=== PATIENT | male | born 1950 | race Caucasian/White ===

== ENCOUNTER 2024-05-11 14:19 | Outpatient (CLI) | payer MEDICARE, OTHER, SELFPAY ==
--- NOTE | ~2024-05-11 | MR_ITS ---
EXAMINATION: MR brain/brain stem wo/w con DATE: 05/11/2024 15:02 INDICATION: Ophthalmoplegia. TECHNIQUE: Magnetic resonance imaging (MRI) of the brain and brainstem was performed without and with 20 mL MultiHance intravenous contrast. COMPARISON: None. FINDINGS: There are scattered areas of nonspecific increased T2-weighted signal intensity in the cere bral white matter, which is within normal limits for the patient's age. There is no intracranial hemo rrhage, acute infarction, or abnormal intracranial mass lesion. The ventricles are normal in size. Th ere is mucosal thickening in the paranasal sinuses. There is anteroposterior elongation of the ocular globes. There are likely changes of ocular lens replacement surgeries. The mastoid air cells are nor mal. IMPRESSION: 1. Normal aging brain. Reviewed, dictated and finalized at location A. E RECLAIMER IMPRESSION: 1. Normal aging brain.
--- OUTSIDE RECORDS SUMMARY | 2024-05-11 14:52 | XMS_ITS | Continuity of Care Document ---
Author Organization [facility] Address [address] [facility] [place] [address] Phone Care Team Providers Care Inspector [employer] Name Role Phone Sanya Foote MD Unavailable Unavailable Allergies, Adverse Reactions, Alerts Substance Reaction Status Criticality No Known Allergies Active No Inform ation Medications Medication Instructions Dosage Effective Dates (start - stop) Status Comments prednisone 20 mg tablet take 3 Tablet by oral route every day 60 MG - Active Crestor 10 mg tablet take 1 tablet by oral route every day 10 MG - Active irbesartan 150 mg-hydrochlorothiazi de 12.5 mg tablet take 1 tablet by oral route every day 1.00 tablet - Active finasteride 5 mg tablet take 1 tablet by oral route every day 5 MG - Active Procedures Procedure Date OFFICE/OUTPATIENT VISIT, EST PPPS, subseq visit OFFICE/OUTPATIENT VISIT, EST OFFICE/OUTPATIENT VISIT, EST OFFICE/OUTPATIENT VISIT, EST PPPS, initial visit OFFICE/OUTPATIENT VISIT, EST OFFICE/OUTPATIENT VISIT, EST OFFICE/OUTPATIENT VISIT, EST OFFICE/OUTPATIENT VISIT, NEW Advance Directives Directive Yes / No Effective Date File Name No Information Encounters Encounter Description Practice Location Reason(s) For Visit Diagnoses Date Provider Providers Copied on Encounter OFFICE/OUTPA TIENT VISIT, EST [facility], [address], [place], [id number], [place] tel:[phone] [facility] cough1 (chief complaint) migraine1 (chief complaint) HTN (chief complaint) Ophthalmoplegic migraine, not intractableEssentia l (primary) hypertensionChronic cough 5 Qamar Segundo. [address], [address], [place], [place], [id number] , [place]. [phone] OFFICE/OUTPA TIENT VISIT, [facility] [place], [address], [place], [place], [id number], [place] tel:[phone] [facility] Medicine physical (chief complaint) Encounter for general adult medical exam w abnormal findingsMixed hyperlipidemiaEssen tial (primary) hypertensionBPH w/o lower urinary tract symptom 4 Qamar Segundo. [address], [address], [place], [place], [id number] , [place]. tel:[phone] OFFICE/OUTPA TIENT VISIT, [facility], [place], [address], [place], [place], [id number], [place] tel:[phone] [facility] cough1 (chief complaint) elbow pain1 (chief complaint) Lateral epicondylitis, left elbowAcute bronchitis 3 Qamar Segundo. [address], [address], [place], [place], [id number] , [place]. [phone] OFFICE/OUTPA TIENT VISIT, [facility], [place], [address], [address], [place] tel:[phone] [facility] Medicine HLKP (chief complaint) skin (chief complaint) HTN (chief complaint) BPH1 (chief complaint) weight gain1 (chief complaint) Abnormal weight gainBPH w/o lower urinary tract symptomEssential (primary) hypertensionMixed hyperlipidemiaActin ic keratosis 2 Qamar Segundo. [address], [address], [place], [place], [address] , [place]. [phone] OFFICE/OUTPA TIENT VISIT, [facility] [place], [address], [place], [place], [address], [place] tel:[phone] [facility] Medicine physical (chief complaint) Essential (primary) hypertensionMixed hyperlipidemiaBPH w/o lower urinary tract symptomEncounter for general adult medical exam w abnormal findings 2 Qamar Fisher [address], [address] , [place]. tel:[phone] OFFICE/OUTPA TIENT VISIT, [facility] [place], [address], [place], [address], tel:[phone] [facility] HTN (chief complaint) HTN (chief complaint) HLP (chief complaint) UTI1 (chief complaint) HyperlipidemiaUrina ry tract infectionElevated prostate specific antigen [PSA]Essential (primary) hypertension 1 Qamar Fisher [address], [address] , [place]. tel:[phone] OFFICE/OUTPA TIENT VISIT, [facility], [place], [address] [place], [address], tel:[phone] [facility] PSA (chief complaint) HLP (chief complaint) UTI1 (chief complaint) HTN (chief complaint) Essential (primary) hypertensionHyperli pidemiaElevated prostate specific antigen [PSA]Urinary tract infectionVitamin D deficiency, unspecified 1 Qamar Fisher [address] [facility] [place], [address] , [place]. tel: [phone] OFFICE/OUTPA TIENT VISIT, [facility], [address], [address], [place] tel:[phone] [facility] HTN (chief complaint) edema1 (chief complaint) cataract1 (chief complaint) Essential (primary) hypertensionEdemaCa taract with neovascularization, right eye 1 Qamar Fisher [address] [facility] [facility] [place], [address] , [place]. tel:[phone] Family History Family Member Type Diagnosis Age At Onset Mother Problem of hip fx 72 (Cause Of ) Brother Problem Alive and well Father Problem of CAD (Cause Of ) 70 Payers Payer name Insurance type Covered republican ID Meli almendarez(s) No Information Social History Type Description Quantity Date Captured Comments Alcohol Use Details No Caffeine Use Details Unknown Tobacco Use Status Current non-smoker Smoking Status Never smoker Sex Male Vital Signs Date / Time: Height Weight BMI Pulse Rate Blood Pressure Temperature Respiratory Rate Body Surface Area Head Circumference BMI percentile Pulse Ox Inhaled Ox 12:57 PM 71.00 in 239.60 lbs 33.4 2 kg/m eter (2) 75 /min 130/80 mm[Hg] 98.0 F 16 /min Chief Complaint And Reason For Visit From encounter dated '04/21/2024 12:46'. cough1 (chief complaint). Description: Pt c/o persistent dry cough since 3 months ago. Pt states that he has coughing spells which is about 3 times per week Pt denies any phlegm pt denies any sore throat Pt denies any sinus drainage Pt denies any ear pain or sob or fever or chest pain migraine1 (chief complaint). Description: Pt has chronic and intermittent migraine headache for many years Pt notices photophobia with nausea along with migraine headache. Pt states that bright lightusually triggers headache. Pt usually has blurred vision left eye along with headache. Pt states that she has not had any headache for several years but he continues to have intermittent left eye blurred vision which usually last several hours after exposure to bright light Pt does have left cataract and macular hole and he does see corporate wellness coordinator .Pt was told by corporate wellness coordinator that his symptoms are not due to eye, instead something in the brain HTN (chief complaint). Description: Pt has HTN ,Pt takes irbesartan/hctz and his bp is ok. Plan Of Treatment Date Type Action Status Referral Ordered: MRI BRAIN W/O & W/DYE ordered Referral Ordered: Otolaryngology (related to Actinic keratosis) ordered Referral Ordered: Referrals: Otolaryngology. Evaluate and treat ordered Referral Ordered: Urology (related to Elevated prostate specific antigen [PSA]) ordered Referral Ordered: Referrals: Urology. Evaluate and treat ordered Appointment David Shaffer BOOKED Appointment David Shaffer BOOKED History Of Present Illness Encounter Date Complaint History Of Prese nt Illness cough1 Pt c/o persisten t dry cough since 3 months ago. Pt states that he has coughing spells which is about 3 times per week Pt denies any phlegm pt denies any sore throat Pt denies any sinus drainage Pt denies any ear pain or sob or fever or chest pain migraine1 Pt has chronic a nd intermittent migraine headache for many years Pt notices photophobia with nausea along with migraine headache. Pt states that bright light usually triggers headache. Pt usually has blurred vision left eye along with headache. Pt states that she has not had any headache for several years but he continues to have intermittent left eye blurred vision which usually last several hours after exposure to bright light Pt does have left cataract and macular hole and he does see corporate wellness coordinator .Pt was told by corporate wellness coordinator that his symptoms are not due to eye, instead something in the brain HTN Pt has HTN ,Pt t akes irbesartan/hctz and his bp is ok. physical Pt needs annual physical Pt has HLP. Pt takes crestor. Pt denies any myalgia. Pt has HTn. Pt takes irbesartan/hctz and his bp is stable. He has BPH and he sees urology. He denies any urinary symptoms .Pt is on finasteride. Pt overall feels well. Pt denies any complaints. elbow pain1 Pt c/o dull left elbow pain x 3 weeks ,pt denies any injury or swelling Pt denies radiation of pain down to left forearm or any numbness or tingling of left forearm Pt denies any redness or warmth. Pt only notices pain when he lift his left elbow to certain degree. cough1 Pt c/o persisten t dry cough x 3 weeks. Pt denies any phlegm Pt denies any sob Pt denies any fever, sore throat. His tested positive for COVID 2.5 weeks ago. Pt denies any chest pain. Pt denies any headache or chest pain or GI symports BPH1 Pt has BPH Pt se es urology and he is on proscar .Pt denies any slow stream, dribbling or any urinary difficulty or urgency HTN Pt has HTN, Pt t akes irbesartan and his bp is stable weight gain1 Pt has been gain ing weight .Pt is not very physically active. pt states that hs to gain weight during winter time skin Pt has scaly and rough skin left ear lobe for one year. Pt nguyen any bleeding Pt notices recurrent rough and scaly skin pt denies any itching or pain. Pt denies any scabbing HLKP Pt has HLP. Pt t akes crestor and his lipid profile is ok His TG is borderline high Pt denies any myalgia physical Pt needs annual physical Pt has HLP. Pt takes crestor. Pt denies any myalgia. Pt has HTn. Pt takes irbesartan/hctz and his bp is stable. He has BPH and he sees urology. He denies any urinary symptoms .Pt is not on any BPH medication. Pt overall feels well. Pt denies any complaints. UTI Pt had asymptoma tic UTI. Pt denies any urinary symptoms and his ua is clear now HLP Pt has HLP Pt ta [place] crestor .Pt denies any myalgia. His lipid profile is better HTN Pt has HTN. Pt t akes irbesartan and his bp is ok. Pt denies any urinary symptoms HTN Pt has high PSA Pt denies any urinary symptoms Pt sees urology and he just got prostate MRi done and he is waiting for results HTN Pt has HTN. Pt t akes irbesartan/hctz and bp ok Pt denies any chest pain or headache Pt denies any cough UTI1 Pt has UTI witho ut any symptoms Pt has urinary frequency but for over one year ,Pt denies any dysuria, urgency. HLP Pt has HLP Pt is not on any diet PSA Pt has high PSA. Pt notices mild urinary frequency for one year Pt denies any dysuria, urgency or difficulty with urination HTN Pt has history o f HTN but he was never treated .Pt denies any chest pain or headache. His bp at home is on average around 155-160/95-100. He states that he has white coat syndrome. edema Pt has some LE e perfecto chronically Pt denies any claudication PT denies any leg pain or calf pain Pt denies any recent travel or bedrest.. he denies any cold extremity. He states that swelling seems to be worse at night. Pt denies any chest pain or sob cataract Pt needs right c ataract surgery soon and he needs clearance. He will undergo monitored anesthesia with mild sedation only. Instructions Date Instruction Additional Infor mation No Information Assessments Type Assessment Date assessment Ophthalmoplegic migraine, not in tractable assessment Essential (primary) hypertension assessment Chronic cough Mental Status Date Cognitive Assessment Orientation - [place] ed to time, place, person, situation.
--- OUTSIDE RECORDS SUMMARY | 2024-05-11 14:52 | XMS_ITS | Continuity of Care Document ---
Author Name [facility] Organization 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 Unavailable Unavailable Problems Combined list of problems from Department of Defense and Veterans Affairs facilities. It does not include entries that were removed or entered in error. Problem Status Onset Date Problem Type Date of Resolution Comments Source macular hole Active Condition DoD cataract left eye Active Condition DoD large intestine neoplasm, benign - tubular adenoma Inactive Condition DoD Aftercare Active Condition DoD large intestine neoplasm, benign polyps Inactive Condition DoD visit for: screening exam malignant neoplasm prostate Inactive Condition DoD Need For Vaccination Against Influenza Inactive Condition DoD Need For Vaccination Against DTP Inactive Condition DoD visit for: screening malignant neoplasm colon Inactive Condition DoD visit for: issue repeat prescription Inactive Condition DoD visit for: administrative purpose Inactive Condition DoD hypertension systemic Active Condition DoD Removal Of Sutures Inactive Condition Do D ganglion left foot Active Condition DoD dermatophytosis onychomycosis toenails right Active Condition DoD unspecified diagnosis Active Condition Tylenol for pain. Keep moist. RTC for problems. DoD non-neoplastic nevus Active Condition Appears stable, but because of rapid growth recently, will remove for proper dx. DoD Medications Combined list of outpatient medications from Department of Defense and Veterans Affairs facilities.Medications provided include 1) outpatient medications from the last 15 months, and 2) patient-reported medications. Medication Details Route Status Patient Instructions Prescription Expires Prescription Number Last Dispense Date Ordering Provider Order Date Order Qty Source FINASTERIDE (FINASTERID E), 5 MG, TABLET, ORAL, EXELAN PHARMACE, 90 ea. BOTTLE Active [id number] 4 2023 90 Pharmac y Data Transac tion Service Facilit y IRBESARTAN- HYDROCHLORO THIAZIDE (IRBESARTAN /HYDROCHLOR OTHIAZIDE), 150-12.5MG, TABLET, ORAL, [facility], 90 ea. BOTTLE Active [id number] 4 2023 90 Pharmac y Data Transac tion Service Facilit y IRBESARTAN- HYDROCHLORO THIAZIDE (IRBESARTAN /HYDROCHLOR OTHIAZIDE), 150-12.5MG, TABLET, ORAL, [facility], 90 ea. BOTTLE Active [id number] 4 2023 90 Pharmac y Data Transac tion Service Facilit y LATANOPROST (LATANOPROS T), 0.005%, DROPS, OPHTHALMIC, [employer] 2.5 ml DROP BTL Active [id number] 07/22/19 2 4 2023 5 Pharmac y Data Transac tion Service Facilit y LATANOPROST (LATANOPROS T), 0.005%, DROPS, OPHTHALMIC, [employer] 2.5 ml DROP BTL Active [id number] 09/22/19 2 4 2023 5 Pharmac y Data Transac tion Service Facilit y Allergies, Adverse Reactions, Alerts Combined list of allergies from Department of Defense and Veterans Affairs facilities. It does not include entries that were removed or entered in error. Substance Category Reaction Severity Reaction type Status Date Reported Comments Source [facility] Drug allergy (disorder) active 12/12/2005 [facility] David RIVERA [place] Immunizations Combined list of available immunizations from the Department of Defense and Veterans Affairs facilities. Immunization Series Date Given Administered By Site Reaction Lot Number CVX Code Drug Sustainability Officer Status Comments Source COVID Vaccine Pfizer 2020 208 PFIZER complet ed COVID Vaccine Pfizer 01/22/21 Given Ambulat ory Pharmac y COVID-19, mRNA, LNP-S, PF, 30 mcg/0.3 mL dose 2020 [facility] [place] (PFR) Not Given COVID-19, mRNA, LNP-S, PF, 30 mcg/0.3 mL dose DoD zoster vaccine, inactivated 2020 [facility] 187 GlaxoSmithKli ne complet ed zoster vaccine, inactivat ed 01/10/21 Given Ambulat ory Pharmac y zoster vaccine, inactivated 2020 zzLef t Arm 24H 187 GlaxoSmithKli ne complet ed zoster vaccine, inactivat ed 01/10/21 Given Ambulat ory Pharmac y zoster vaccine recombinant 1 2020 Unknown, Provider 24H 187 [facility] zoster vaccine recombina nt DoD zoster vaccine, inactivated 2020 [id number] 187 GlaxoSmithKli ne complet ed zoster vaccine, inactivat ed 09/21/20 Given Ambulat ory Pharmac y pneumococcal polysaccharid e, 23 valent 2020 [id number] Merck & Company Inc complet ed pneumococ sabrina polysacch aride, 23 valent 09/21/20 Given Ambulat ory Pharmac y zoster vaccine, inactivated 2020 zzLef t Arm [id number] 187 [facility] complet ed zoster vaccine, inactivat ed 09/21/20 Given Ambulat ory Pharmac y pneumococcal polysaccharid e, 23 valent 2020 zzLef t Arm [id number] 33 [employer]ck & Company Inc complet ed pneumococ sabrina polysacch aride, 23 valent 09/21/20 Given Ambulat ory Pharmac y pneumococcal polysaccharid e vaccine, 23 valent 1 2020 Unknown, Provider [id number] Merck (MSD) complet ed pneumococ sabrina polysacch aride vaccine, 23 valent DoD zoster vaccine recombinant 1 2020 Unknown, Provider [id number] 187 [facility] ([facility]B) complet ed zoster vaccine recombina nt DoD zoster vaccine live 2014 [id number] [employer] Inc complet ed zoster vaccine live 12/15/14 Given Ambulat ory Pharmac y zoster vaccine live 2014 zzLef t Arm [id number] 121 [employer] Inc complet ed zoster vaccine live 12/15/14 Given Ambulat ory Pharmac y zoster vaccine, live 1 2014 Unknown, Provider [id number] 121 Merck (MSD) complet ed zoster vaccine, live DoD influenza, seasonal, injectable-pf 2011 [id number] 140 sanofi pasteur complet ed influenza , seasonal, injectabl e-pf 03/11/12 Given Ambulat ory Pharmac y tetanus, diphtheria, acellular pertu is 2011 [id number] 115 [facility] ed tetanus, diphtheri a, acellular pertussis 03/11/12 Given Ambulat ory Pharmac y influenza, seasonal, injectable-pf 2011 zzLef t Arm [id number] 140 sanofi pasteur complet ed influenza , seasonal, injectabl e-pf 03/11/12 Given Ambulat ory Pharmac y tetanus, diphtheria, acellular pertu is 2011 zzRig Arm [id number] 7BC 115 [facility] tetanus, diphtheri a, acellular pertussis 03/11/12 Given Ambulat ory Pharmac y tetanus toxoid, reduced diphtheria toxoid, and acellular pertu is vaccine, adsorbed 1 2011 Unknown, Provider [id number] 115 [facility] ([facility]B) complet ed tetanus toxoid, reduced diphtheri a toxoid, and acellular pertussis vaccine, adsorbed DoD Influenza, seasonal, injectable, preservative free 1 2011 Unknown, Provider [id number] 140 Sanofi Pasteur (PMC) complet ed Influenza , seasonal, injectabl e, preservat shantal free DoD tetanus-dipht h toxoids (Td) adult/adol 2003 [id number] 09 sanofi pasteur complet ed tetanus-d iphth toxoids (Td) adult/ado l 01/24/04 Given Ambulat ory Pharmac y tetanus-dipht h toxoids (Td) adult/adol [facility] [id number] 09 sanofi pasteur complet ed tetanus-d iphth toxoids (Td) adult/ado l 01/24/04 Given Ambulat ory Pharmac y tetanus and diphtheria toxoids, adsorbed, preservative free, for adult use (2 Lf of tetanus toxoid and 2 Lf of diphtheria toxoid) 1 2003 Unknown, Provider [id number] 09 Sanofi Pasteur (PMC) complet ed tetanus and diphtheri a toxoids, adsorbed, preservat shantal free, for adult use (2 Lf of tetanus toxoid and 2 Lf of diphtheri a toxoid) DoD tuberculin purified protein derivative 2001 [id number] 96 sanofi pasteur complet ed tuberculi n purified protein derivativ e 10/12/01 Given Ambulat ory Pharmac y hepatitis A adult vaccine 1999 [id number] 52 Merck & Company Inc complet ed hepatitis A adult vaccine 11/12/99 Given Ambulat ory Pharmac y hepatitis A adult vaccine 1999 zMargi t Arm [id number] 52 [employer]ck & Company Inc complet ed hepatitis A adult vaccine 11/12/99 Given Ambulat ory Pharmac y hepatitis A vaccine, adult dosage 2 07/31/ 2000 Unknown, Provider [id number] 52 Merck (MSD) complet ed hepatitis A vaccine, adult dosage DoD tuberculin purified protein derivative [id number] 96 [place] [employer]al[employer]to complet ed tuberculi n purified protein derivativ e 02/15/98 Given Ambulat ory Pharmac y tuberculin purified protein derivative [id number] 96 [place] Adalberto complet ed Patient Tolerance : Negative Ambulat ory Pharmac y tuberculin skin test; purified protein derivative solution, intradermal 1 1997 Unknown, Provider [id number] 96 [place] (PD) complet ed tuberculi n skin test; purified protein derivativ e solution, intraderm al DoD Vital Signs Combined list of inpatient and outpatient Vital Signs from Department of Defense and Veterans Affairs, ranging from 12 months to all on record, depending upon the facility. Vital Sign Value Date Comments Source No data available for this section Ambulatory Pharmacy Encounters Combined list of: 1) Encounters from Department of Veterans Affairs facilities going back up to thelast 18 months. 2) Encounters from the Department of Defense facilities going back up to 280 months. Location Location Details Encounter Type Encounter Number Reason For Visit Attending Provider ADM Date DC Date Status Disposition Source [address] [place] [address] David RIVERA [facility]Sco tt [facility] Fam Res Tm Green) OUTPATIENT [id number] lump on the shoulde r ARVIND SEYMOUR 11/26 Released w/o Limitations [address] [place] [address] David Jimy [facility])(S cott [facility] Fam Res Tm Green) [address] [place] [address] David Jimy [facility])(Fam helen Practice Procedure s) OUTPATIENT [id number] NON-MARLON PLASTIC NEVUS MARINA OSHEA 01/07 Released w/o Limitations [address] [place] [address] David RIVERA [facility])(F amily Practic e Procedu res) [address] [place] [address] David RIVERA [facility])(Sco tt [facility] FAMRES Tm Blue) OUTPATIENT [id number] poss fungus on toes - [phone] JERMAINE CASTILLO 01/24 Released w/o Limitations [address] [place] [address] David RIVERA [facility])(S cott [facility] FAMRES Tm Blue) [address] [place] [address] David Jimy [facility])(Sco tt [facility] FAMRES Tm Blue) OUTPATIENT [id number] growth on lt foot... [id number] WILLA ARROYO 02/01 Released w/o Limitations [facility] David SCHAEFERB [place]S cott [facility] FAMRES Tm Blue) Medical [facility] David OLIVEB ([facility]Sco tt [facility] Fam Res Tm Green) OUTPATIENT [id number] MINOR PROCEDU RES-KELSEA GLION LEFT FOOT LYUDMILA HUNG 02/28 Released w/o Limitations [facility] David OLIVEB [place]S cott [facility] Fam Res Tm Green) [address] [place] [address] David OLIVEB [place]Sco tt [facility] Fam Res Tm Green) OUTPATIENT [id number] SUTURE REMOVAL SONJA WARE 03/06 Released w/o Limitations [facility] David RIVERA ([facility]S cott [facility] Fam Res Tm Green) [address] [place] [address] David OLIVEB ([facility]Sco tt [facility] FAMRES Tm Blue) OUTPATIENT [id number] Cyst on left foot middle toe [phone] TIFFANY CAMARA 09/26 Released w/o Limitations [address] [place] [address] David SCHAEFERB ([facility]S cott [facility] FAMRES Tm Blue) [address] [place] [address] David OLIVEB ([facility]Sco tt [facility] FAMRES Tm Blue) TELE CONSULT [id number] Needs fup appt with Dr Armas - [phone] CAD [facility] PANKAJ ARMAS 10/17[facility] David SCHAEFERB ([facility]S cott [facility] FAMRES Tm Blue) [address] [place] [address] David SCHAEFERB ([facility]Sco tt [facility] FAMRES Tm Blue) OUTPATIENT [id number] f/u ROGER PALUMBO 11/13 Released w/o Limitations [facility] David SCHAEFERB ([facility]S cott [facility] FAMRES Tm Blue) [address] [place] [address] David SCHAEFERB ([facility]Sco tt [facility] FAMRES Tm Blue) OUTPATIENT [id number] f/u for medicat ions [phone] PANKAJ ARMAS 01/01 Released w/o Limitations [address] [place] [address] [employer] ([facility]S cott [facility] FAMRES Tm Blue) [address] [place] [address] [employer] ([facility]Sco tt [facility] FAMRES Tm Blue) OUTPATIENT [id number] f/u high blood pressur e [id number] VALENTE ARANA 06/30 Released w/o Limitations [address] [place] [address] Group David RIVERA ([facility]S cott [facility] FAMRES Tm Blue) [address] [place] [address] David RIVERA ([facility]Sco tt [facility] FAMRES Tm Blue) OUTPATIENT [id number] blood pressur e [phone] PANKAJ ARMAS 03/11 Released w/o Limitations [address] [place] [address] David RIVERA [facility])(S cott [facility] FAMRES Tm Blue) [address] [place] [address] David SCHAEFERB [facility])(Sco tt [facility] Fam Res Tm Green) OUTPATIENT [id number] 2nd floor David RIVERA/VALENTE Starr 05/18 Released w/o Limitations [address] [place] [address] David RIVERA [facility])(S cott [facility] Fam Res Tm Green) [address] [place] [address] David RIVERA [facility])(Sco tt [facility] FAMRES Tm Blue) TELE CONSULT [id number] Notes Entered by: ZABRINA BRISCOE 19 May 2012 1511 ------- ------- ------- ------- -- Call back C-scope 2012- KEKE Doty 05/19 Released to [facility] [address] [place] [address] David RIVERA [facility]S cott [facility] FAMRES Tm Blue) [address] [place] [address] David RIVERA [facility]Sco tt [facility] Fam Res Tm Green) TELE CONSULT [id number] Notes Entered by: VALENTE PAYNE 27 May 2012 1157 ------- ------- ------- ------- -- Biopsy Results VALENTE PAYNE 05/[address] [place] [address] Group David RIVERA [facility])(S cott [facility] Fam Res Tm Green) [address] [place] [address] David RIVERA [facility]Sco tt [facility] FAMRES Tm Blue) OUTPATIENT [id number] fu whole in left eye [phone] ROSEMARIE UNDERWOOD 02/16 Released w/o Limitations [address] [place] [address] David RIVERA [facility])(S cott [facility] FAMRES Tm Blue) [address] [place] [address] David RIVERA [facility]Sco tt [facility] FAMRES Tm Blue) TELE CONSULT [id number] Notes Entered by: BEA DONALDSON 15 Mar 2014 1305 ------- ------- ------- ------- -- Curt kimble Renewal request ed by KIRT ALVAREZ 03/15 Referred for Appointment [address] [place] [address] David [facility])(S cott [facility] FAMRES Tm Blue) [address] [place] [address] David [facility])(Sco tt [facility] FAMRES Tm Blue) TELE CONSULT [id number] Notes Entered by: TY FRAUSTO 18 Aug 2014 1427 ------- ------- ------- ------- -- Kim bartholomew /johanna /[phone] 52 MARGOT MEZA 08/[address] [place] [address] David [facility]S [facility] FAMRES Tm Blue) [address] [place] [address] David [facility])(Sco tt [facility] FAMRES Tm Blue) TELE CONSULT [id number] Notes Entered by: STEVIE SANTANA 23 Sep 2014 1442 ------- ------- ------- ------- -- Network results Ophthal [facility] 5 DEX PHILIPPE 09/[address] [place] [address] [facility] FAMRES Tm Blue) [address] [place] [address] David [facility])(Sco tt [facility] Fam Res Tm Green) TELE CONSULT [id number] Notes Entered by: STEVIE SANTANA 05 Oct 2014 1119 ------- ------- ------- ------- -- Network results Ophthal mology 4 & 5 DEX PHILIPPE 10/[address] [place] [address] David OLIVEB [facility])(S cott [facility] Fam Res Tm Green) [address] [place] [address] David B [facility])(Sco tt [facility] Fam Res Tm Green) TELE CONSULT [id number] Notes Entered by: STEVIE SANTANA 24 Jan 2015 0915 ------- ------- ------- ------- -- Network results [facility] mology 5 DEX PHILIPPE 01/[address] [place] [address] David SCHAEFERB [place]S cott OF Fam Res Tm Green) [address] [place] [address] David B ([facility]Sco tt OF FAMRES Tm Blue) TELE CONSULT [id number] Notes Entered by: Rob JIMÉNEZ 24 Jan 2015 1445 ------- ------- ------- ------- -- SX - Joaquinu lar elzbieat/reema gomez/ Johanna / MARGOT MEZA 01/[address] [place] [address] [employer] ([facility]S cott OF FAMRES Tm Blue) [address] [place] [address] David B ([facility]Sco tt OF FAMRES Tm Blue) OUTPATIENT [id number] Follow up er visit [id number] KRISTINE DEL TORO N 01/25 Released w/o Limitations [address] [place] [address] David B ([facility]S cott OF FAMRES Tm Blue) [address] [place], [place] [address]B ([facility]Sco tt OF FAMRES Tm Blue) OUTPATIENT [id number] f/u in 10 days KRISTINE DEL TORO N 02/02 Released w/o Limitations [address] [place] [address] [employer] ([facility]S cott OF FAMRES Tm Blue) [address] [place] [address] [employer] ([facility]Sco tt OF Fam Res Tm Green) TELE CONSULT [id number] Notes Entered by: STEVIE SANTANA 28 Mar 2015 1003 ------- ------- ------- ------- -- Network Results - [facility] mology 5 DEX PHILIPPE 03/[address] [place] [address] [employer] ([facility]S cott OF Fam Res Tm Green) [address] [place] [address] [employer] ([facility]Sco tt OF FAMRES Tm Blue) TELE CONSULT [id number] Notes Entered by: DONNY OROZCO 08 May 2016 1131 ------- ------- ------- ------- -- Network Results OPHTHAL MOLOGY 04/25/16 CHASITYDEX DIAZ Rob 05/[address] [place] [address])(S [facility] Blue) [address] [place] [address])(Sco tt [facility]) OUTPATIENT [id number] 9 cough x 1 month 61.693 .[phone] AIMEE REED 07/14 Released w/o Limitations [address] [place] [address])(S [facility]) [address] [place] [address])(Sco tt [facility]) TELE CONSULT [id number] Notes Entered by: DAVID HUSAIN 25 Dec 2018 0937 ------- ------- ------- ------- -- Network results Gastroe nterolo gy 019 EER AIMEE REED 12/25 Released to [facility] [address] [place] [address])(S [facility] Blue) [address] [place] [address])(Sco tt [facility]) OUTPATIENT [id number] 3 6-month f/u [id number] AIMEE REED 02/11 Released w/o Limitations [address] [place] [address])([facility]) Procedures Combined list of: 1) Procedures from Department of Veterans Affairs facilities going back up to thelast 18 months, not all VA non-surgical procedures are included; 2) All procedures from the Department of Defense facilities. Procedure Procedure Type Code Date Perfomer Comments Sourc e No data available for this section Ambulato ry Pharmacy CLOSED REDUCTION OF FRACTURE OF FEMUR WITH INTERNAL FIXATION 07/30/18 95 [facility] TELE ASSESS & MGT SRV PROV QUAL NONPHYS HLTH CARE PRO TO EST PAT,PARENT,GUARD NOT ORIG REL ASSESS & MGT SRV PROV W/IN PREV 7 DAYS NOR LEAD ASSESS & MGT SRV/PX W/IN NXT 24 HR/SOON APT;5-10 MIN MED DIS 01/25/20 15 DoD TELE ASSESS & MGT SRV PROV QUAL NONPHYS HLTH CARE PRO TO EST PAT,PARENT,GUARD NOT ORIG REL ASSESS & MGT SRV PROV W/IN PREV 7 DAYS NOR LEAD ASSESS & MGT SRV/PX W/IN NXT 24 HR/SOON APT;5-10 MIN MED DIS 08/19/19 15 DoD TELE ASSESS & MGT SRV PROV QUAL NONPHYS HLTH CARE PRO TO EST PAT,PARENT,GUARD NOT ORIG REL ASSESS & MGT SRV PROV W/IN PREV 7 DAYS NOR LEAD ASSESS & MGT SRV/PX W/IN NXT 24 HR/SOON APT;5-10 MIN MED DIS 03/15/20 14 DoD INFLUENZA VIRUS VACCINE, TRIVALENT (IIV3), SPLIT VIRUS, PRESERVATIVE FREE, 0.5 ML DOSAGE, FOR INTRAMUSCULAR USE 03/11/20 12 DoD TELE ASSESS & MGT SRV PROV QUAL NONPHYS HLTH CARE PRO TO EST PAT,PARENT,GUARD NOT ORIG REL ASSESS & MGT SRV PROV W/IN PREV 7 DAYS NOR LEAD ASSESS & MGT SRV/PX W/IN NXT 24 HR/SOON APT;5-10 MIN MED DIS 10/18/19 11 DoD EXCISION, BENIGN LESION INCLUDING MARGINS, EXCEPT SKIN TAG (UNLESS LISTED ELSEWHERE), SCALP, NECK, HANDS, FEET, GENITALIA; EXCISED DIAMETER 0.5 CM OR LESS 02/29/20 09 DoD SHAVING OF EPIDERMAL OR DERMAL LESION, SINGLE LESION, TRUNK, ARMS OR LEGS; LESION DIAMETER 1.1 TO 2.0 CM 01/08/20 06 DoD FITTING OF SPECTACLES, EXCEPT FOR APHAKIA; BIFOCAL 07/27/19 03 DoD SIGMOIDOSCOPY, FLEXIBLE; DIAGNOSTIC, INCLUDING COLLECTION OF SPECIMEN(S) BY BRUSHING OR WASHING, WHEN PERFORMED (SEPARATE PROCEDURE) 01/23/20 02 DoD SIGMOIDOSCOPY, FLEXIBLE; DIAGNOSTIC, INCLUDING COLLECTION OF SPECIMEN(S) BY BRUSHING OR WASHING, WHEN PERFORMED (SEPARATE PROCEDURE) 01/06/20 02 DoD Non-Physician Phone Call To Patient/Provider Brief (5-10min) Non-Physician Phone Call To Patient/Provider Brief (5-10min) [id number] 01/25/20 15 MARGOT MEZA DoD Non-Physician Phone Call To Patient/Provider Brief (5-10min) Non-Physician Phone Call To Patient/Provider Brief (5-10min) [id number] 08/19/19 15 MARGOT MEZA [facility] Non-Physician Phone Call To Patient/Provider Brief (5-10min) Non-Physician Phone Call To Patient/Provider Brief (5-10min) [id number] 03/15/20 14 KIRT DONALDSON [facility] Immunization Administration By Injection, One Vaccine Immunization Administration By Injection, One Vaccine [id number] 03/11/20 12 [facility] Influenza Split Virus Vaccine 0.5mL Dosage Intramuscular Preservative Free 03/11/20 12 [facility] Immunization Administration By Injection, Each Additional Vaccine 03/11/20 12 [facility] Tdap Vaccine Tdap Vaccine 36877 03/11/20 12 [facility] Non-Physician Phone Call To Patient/Provider Brief (5-10min) Non-Physician Phone Call To Patient/Provider Brief (5-10min) [id number] 10/19/19 11 JEANIE MERINO [facility] Excision Of Lesion Feet Benign .6 to 1cm Excision Of Lesion Feet Benign .6 to 1cm [id number] 02/29/20 09 LYUDMILA HUNG [facility] Shaving Of Lesion Trunk 1.1 to 2cm Shaving Of Lesion Trunk 1.1 to 2cm [id number] 01/08/20 06 MARINA OSHEA [facility] Social History Combined list of available smoking, tobacco, and other social history from [facility] facilities. Social History Type Response Date Comment Sour e This section is an empty social history section. [employer] Assessment and Plan Combined list of future care activities from [facility] facilities (e.g., assessment and plan notes, appointments, orders, and referrals). Additional future care activities may be listed in the Plan of Care section. Result Assessment and Plan Date Source Assessment and Plan No data available for this section 05/11/2024 [facility] Functional Status Combined list of recent functional and cognitive assessments recorded at [facility] Functional [place] Measurement (FIM) Scale: 1 = Total Assistance (Subject = 0% +), 2 = Maximal Assistance (Subject = 25% +), 3 = Moderate Assistance (Subject = 50% +), 4 = Minimal Assistance (Subject = 75% +), 5 = Supervision, 6 = Modified [place] (Device), 7 = Complete [place] (Timely, Safely). Assessment Date/Time Source Assessment Type Assessment Skill Assessment Score Assessment Details No data available for this section
== END 2024-05-11 14:20 | disposition home or self-care (01) ==
PROVIDERS: PCP Emergency Medicine; Visit Provider Emergency Medicine
DX: G43.B0 Ophthalmoplegic migraine, not intractable (principal)
CPT/HCPCS: 70553; A9577

== ENCOUNTER 2024-09-05 10:30 | Day surgery (SDC) | payer MEDICARE, OTHER, SELFPAY ==
[2024-09-05] VITALS (10 sets, daily range): BP systolic 89–158; BP diastolic 55–96; PULSE 58–71; RESP 15–20; TEMP 36.4–36.6; O2SAT 96–100
--- OUTSIDE RECORDS SUMMARY | 2024-09-05 10:32 | XMS_ITS | Continuity of Care Document ---
Author Name [facility] Organization D[facility] Care Team Providers Care Business Banking Sales Assistant Name Role Phone [facility] Unavailable Unavailable Problems Combined list of problems from Department of Defense and Veterans Affairs facilities. It does not include entries that were removed or entered in error. Problem Status Onset Date Problem Type Date of Resolution Comments Source MACULAR HOLE Active Condition DoD CATARACT - LEFT EYE Active Condition Do D LARGE INTESTINE NEOPLASM, BENIGN - TUBULAR ADENOMA Inactive Condition DoD Aftercare Active Condition DoD LARGE INTESTINE NEOPLASM, BENIGN - POLYPS Inactive Condition DoD visit for: screening exam malignant neoplasm prostate Inactive Condition DoD Vaccines Prophylactic Need Against Influenza Inactive Condition DoD Vaccines Prophylactic Need Against DTP Inactive Condition DoD visit for: screening malignant neoplasm colon Inactive Condition DoD visit for: issue repeat prescription Inactive Condition DoD visit for: administrative purpose Inactive Condition DoD HYPERTENSION (SYSTEMIC) Active Condition DoD Removal Of Sutures Inactive Condition Do D GANGLION LEFT FOOT Active Condition 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 Keep moist. RTC for problems. DoD NON-NEOPLASTIC NEVUS Active Condition Appears stable, but because of [...] ORAL, EXELAN PHARMACE, 90 ea. BOTTLE Active [id number] 4 2023 90 Pharmac y Data Transac tion Service Facilit y IRBESARTAN- HYDROCHLORO THIAZIDE (IRBESARTAN /HYDROCHLOR OTHIAZIDE), 150-12.5MG, TABLET, ORAL, [facility] [facility], 90 ea. BOTTLE Active [id number] 4 2023 90 Pharmac y Data Transac tion Service Facilit y IRBESARTAN- HYDROCHLORO THIAZIDE (IRBESARTAN /HYDROCHLOR OTHIAZIDE), 150-12.5MG, TABLET, ORAL, [facility] [facility], 90 ea. BOTTLE Active [id number] 4 2023 90 Pharmac y Data Transac tion Service Facilit y LATANOPROST (LATANOPROS T), 0.005%, DROPS, OPHTHALMIC, [employer] 2.5 ml DROP BTL Active [id number] 07/22/19 2 4 2023 5 Pharmac y Data Transac tion Service Facilit y LATANOPROST (LATANOPROS T), 0.005%, DROPS, OPHTHALMIC, [employer] 2.5 ml DROP BTL Active [id number] 09/22/19 2 4 2023 5 Pharmac y Data Transac tion Service Facilit y Allergies, Adverse Reactions, Alerts Combined list of allergies from Department of Defense and Veterans Affairs facilities. It does not include entries that were removed or entered in error. Substance Category Reaction Severity Reaction type Status Date Reported Comments Source NO OUTPUT FOR [facility] [id number] Drug allergy (disorder) active 12/12/2005 [facility] Medical [facility] David RIVERA ([facility]) Immunizations Combined list of available immunizations from the Department of Defense and Veterans Affairs facilities. Immunization Series Date Given Administered By Site Reaction Lot Number CVX Code Drug Geotechnical Intern Status Comments Source COVID Vaccine Pfizer 2020 208 PFIZER complet ed COVID Vaccine Pfizer 01/22/21 Given Ambulat ory Pharmac y COVID-19, mRNA, LNP-S, PF, 30 mcg/0.3 mL dose 2020 TEDDY [employer] [place] (PFR) Not Given COVID-19, mRNA, LNP-S, PF, 30 mcg/0.3 mL dose DoD zoster vaccine, inactivated 2020 [facility] 187 GlaxoSmithKli ne complet ed zoster vaccine, inactivat ed 01/10/21 Given Ambulat ory Pharmac y zoster vaccine, inactivated 2020 zzLef t Arm [facility] 187 GlaxoSmithKli ne complet ed zoster vaccine, inactivat ed 01/10/21 Given Ambulat ory Pharmac y zoster vaccine recombinant 1 2020 Unknown, Provider [facility] zoster vaccine recombina nt DoD zoster vaccine, inactivated 2020 [id number] [facility] complet ed zoster vaccine, inactivat ed 09/21/20 Given Ambulat ory Pharmac y pneumococcal polysaccharid e, 23 valent 2020 [id number] 33 Merck & Company Inc complet ed pneumococ sabrina polysacch aride, 23 valent 09/21/20 Given Ambulat ory Pharmac y zoster vaccine, inactivated 2020 zzLef t Arm [id number] 187 [facility] complet ed zoster vaccine, inactivat ed 09/21/20 Given Ambulat ory Pharmac y pneumococcal polysaccharid e, 23 valent 2020 zzLef t Arm [id number] 33 [employer]ck & Company Inc complet ed pneumococ sabrina polysacch aride, 23 valent 09/21/20 Given Ambulat ory Pharmac y pneumococcal polysaccharid e vaccine, 23 valent 1 2020 Unknown, Provider [id number] Merck (MSD) complet ed pneumococ sabrina polysacch aride vaccine, 23 valent DoD zoster vaccine recombinant 1 2020 Unknown, Provider [id number] 187 [facility] ([facility]) complet ed zoster vaccine recombina nt DoD zoster vaccine live 2014 [id number] 121 [employer] Inc complet ed zoster vaccine live 12/15/14 Given Ambulat ory Pharmac y zoster vaccine live 2014 zzLef t Arm [id number] 121 [employer]ck & [employer] Inc complet ed zoster vaccine live 12/15/14 Given Ambulat ory Pharmac y zoster vaccine, live 1 2014 Unknown, Provider [id number] 121 Merck (MSD) complet ed zoster vaccine, live DoD influenza, seasonal, injectable-pf 2011 [id number] 140 sanofi pasteur complet ed influenza , seasonal, injectabl e-pf 03/11/12 Given Ambulat ory Pharmac y tetanus, diphtheria, acellular pertu is 2011 [id number] [address] [facility] complet ed tetanus, diphtheri a, acellular pertussis 03/11/12 Given Ambulat ory Pharmac y influenza, seasonal, injectable-pf 2011 zzLef t Arm [id number] 140 sanofi pasteur complet ed influenza , seasonal, injectabl e-pf 03/11/12 Given Ambulat ory Pharmac y tetanus, diphtheria, acellular pertu is 2011 zzRig Arm [id number] 115 [place] [employer] complet ed tetanus, diphtheri a, acellular pertussis 03/11/12 Given Ambulat ory Pharmac y tetanus toxoid, reduced diphtheria toxoid, and acellular pertu is vaccine, adsorbed 1 2011 Unknown, Provider [id number] 115 [facility] (SKB) complet ed tetanus toxoid, reduced diphtheri a toxoid, and acellular pertussis vaccine, adsorbed DoD Influenza, seasonal, injectable, preservative free 1 2011 Unknown, Provider [id number] 140 Sanofi Pasteur (PMC) complet ed Influenza , seasonal, injectabl e, preservat shantal free DoD tetanus-dipht h toxoids (Td) adult/adol 2003 [id number] 09 sanofi pasteur complet ed tetanus-d iphth toxoids (Td) adult/ado l 01/24/04 Given Ambulat ory Pharmac y tetanus-dipht h toxoids (Td) adult/adol [facility] [id number] 09 sanofi pasteur complet ed tetanus-d iphth toxoids (Td) adult/ado l 01/24/04 Given Ambulat ory Pharmac y tetanus and diphtheria toxoids, adsorbed, preservative free, for adult use (2 Lf of tetanus toxoid and 2 Lf of diphtheria toxoid) 1 2003 Unknown, Provider [id number] 09 Sanofi Pasteur (PMC) complet ed tetanus and diphtheri a toxoids, adsorbed, preservat shantal free, for adult use (2 Lf of tetanus toxoid and 2 Lf of diphtheri a toxoid) [facility] tuberculin purified protein derivative 2001 [id number] 96 sanofi pasteur complet ed tuberculi n purified protein derivativ e 10/12/01 Given Ambulat ory Pharmac y hepatitis A adult vaccine [id number] 52 Merck & Company Inc complet ed hepatitis A adult vaccine 11/12/99 Given Ambulat ory Pharmac y hepatitis A adult vaccine 1999 z[place]ef t Arm [id number] 52 Merck & Company Inc complet ed hepatitis A adult vaccine 11/12/99 Given Ambulat ory Pharmac y hepatitis A vaccine, adult dosage 2 1999 Unknown, Provider [id number] 52 Merck (MSD) complet ed hepatitis A vaccine, adult dosage DoD tuberculin purified protein derivative [id number] 96 [place] Adalberto complet ed tuberculi n purified protein derivativ e 02/15/98 Given Ambulat ory Pharmac y tuberculin purified protein derivative [id number] 96 [place] Adalberto complet ed Patient Tolerance : Negative Ambulat ory Pharmac y tuberculin skin test; purified protein derivative solution, intradermal 1 1997 Unknown, Provider [id number] 96 [place] (PD) complet ed tuberculi n skin test; purified protein derivativ e solution, intraderm al DoD Encounters Combined list of: 1) Encounters from Department of Veterans Affairs facilities going backup to the last 18 months, not all VA inpatient encounters are included; 2) Encounters from the Department of Defense facilities going backup to 280 months. Location Location Details Encounter Type Encounter Number Reason For Visit Attending Provider ADM Date DC Date Status Disposition Source [address] [place] [address] David RIVERA [facility])(Sco tt [facility] Res [place]m [place]) OUTPATIENT [id number] lump on the shoulde ARVIND Dasilva 11/26 Released w/o Limitations [address] [place] [address] David RIVERA [facility])(S [facility] Fam Res [place]) [address] [place] [address] David RIVERA [facility])([facility] helen Practice Procedure s) OUTPATIENT [id number] NON-MARLON PLASTIC NEVUS MARINA OSHEA 01/07 Released w/o Limitations [address] [place] [address] David RIVERA [facility])(F amily Practic e Procedu res) [address] [place] [address] David RIVERA [facility] OUTPATIENT [id number] poss fungus on toes - [phone] JERMAINE CASTILLO 01/24 Released w/o Limitations [address] [place] [address] David RIVERA [facility])(S [facility] FAMRES Tm Blue) [address] [place] [address] David RIVERA [facility])(Sco tt [facility] FAMRES Tm Blue) OUTPATIENT [id number] growth on lt foot... [id number] WILLA ARROYO 02/01 Released w/o Limitations [address] [place] [address] David RIVERA [facility])(S [facility] FAMRES Tm Blue) [address] [place] [address] David SCHAEFERB ([facility])(Sco tt [facility] Fam Res [place]m [place]) OUTPATIENT [id number] MINOR PROCEDU RES-KELSEA GLION LEFT FOOT LYUDMILA HUNG Rambo 02/28 Released w/o Limitations [address] [place] [address] David SCHAEFERB ([facility])(S cott OF Fam Res Tm Green) [address] [place] [address] David SCHAEFERB ([facility])(Sco tt [facility] Fam Res [place]m [place]) OUTPATIENT [id number] SUTURE REMOVAL JEANIE, SONJAGONZALEZ CASILLAS 03/06 Released w/o Limitations [address] [place] [address] David RIVERA ([facility])(S cott [facility] Fam Res [place]m [place]) [address] [place] [address] David SCHAEFERB ([facility])(Sco tt [facility] FAMRES Tm Blue) OUTPATIENT [id number] Cyst on left foot middle toe [phone] TIFFANY CAMARA 09/26 Released w/o Limitations [address] [place] [address] David RIVERA ([facility])(S cott [facility] FAMRES Tm Blue) [address] [place] [address] David RIVERA ([facility])(Sco tt [facility] FAMRES Tm Blue) TELE CONSULT [id number] Needs fup appt with Dr Armas - [phone] CAD [facility] PANKAJ ARMAS 10/17[facility] David RIVERA ([facility])(S cott [facility]m Blue) [address] [place] [address] David RIVERA ([facility])(Sco tt [facility] FAMRES Tm Blue) OUTPATIENT [id number] f/u ROGER PALUMBO 11/13 Released w/o Limitations [address] [place] [address] David RIVERA ([facility])(S cott [facility] FAMRES Tm Blue) [address] [place] [address] David RIVERA ([facility])(Sco tt [facility] FAMRES Tm Blue) OUTPATIENT [id number] f/u for medicat ions [phone] PANKAJ ARMAS 01/01 Released w/o Limitations [address] [place] [address] David RIVERA ([facility])(S cott [facility] FAMRES Tm Blue) [address] [place] [address] David RIVERA ([facility])(Sco tt [facility] FAMRES Tm Blue) OUTPATIENT [id number] f/u high blood pressur e [phone] VALENTE ARANA 06/30 Released w/o Limitations [address] [place] [address] David RIVERA ([facility])(S cott [facility] FAMRES Tm Blue) [address] [place] [address] aDvid OLIVEJimy [facility])(Sco tt [facility] FAMRES Tm Blue) OUTPATIENT [id number] blood pressur e [phone] PANKAJ ARMAS 03/11 Released w/o Limitations [address] [place] [address] Group David OLIVEB ([facility])(S cott OF FAMRES Tm Blue) [address] [place] [address] David SCHAEFERB [facility])(Sco tt [facility] Fam Res Tm Green) OUTPATIENT [id number] 2nd floor David RIVERA/VALENTE Starr 05/18 Released w/o Limitations [address] [place] [address] David OLIVEJimy [facility])(S cott [facility] Fam Res Tm Green) [address] [place] [address] David OLIVEJimy [facility])(Sco tt [facility] FAMRES Tm Blue) TELE CONSULT [id number] Notes Entered by: ZABRINA BRISCOE 19 May 2012 1511 ------- ------- ------- ------- -- Call back C-scope 2012- KEKE Doty 05/19 Released to Self Care [address] [place] [address] David RIVERA [facility]S cott [facility]RES Tm Blue) [address] [place] [address] David OLIVEJimy [facility])(Sco tt [facility] Fam Res Tm Green) TELE CONSULT [id number] Notes Entered by: VALENTE PAYNE 27 May 2012 1157 ------- ------- ------- ------- -- Biopsy Results VALENTE PAYNE 05/[address] [place] [address] Group David RIVERA [facility])(S cott [facility] Fam Res Tm Green) [address] [place] [address] David OLIVEJimy [facility])(Sco tt [facility] FAMRES Tm Blue) OUTPATIENT [id number] fu whole in left eye [phone] ROSEMARIE UNDERWOOD 02/16 Released w/o Limitations [address] [place] [address] David OLIVEJimy ([facility])(S cott [facility] FAMRES Tm Blue) [address] [place] [address] David OLIVEB ([facility])(Sco tt [facility] FAMRES Tm Blue) TELE CONSULT [id number] Notes Entered by: BEA DONALDSON 15 Mar 2014 1305 ------- ------- ------- ------- -- Curt kimble Renewal request ed by KIRT ALVAREZ 03/15 Referred for Appointment [address] [place] [address] Group David [facility])(S cott [facility] FAMRES Tm Blue) [address] [place] [address])(Sco tt [facility] Tm Blue) TELE CONSULT [id number] Notes Entered by: TY FRAUSTO 18 Aug 2014 1427 ------- ------- ------- ------- -- Kim bartholomew /johanna /[phone] MARGOT MEZA 08/[address] [place] [address])(S [facility] FAMRES Tm Blue) [address] [place] [address])([facility] TELE CONSULT [id number] Notes Entered by: STEVIE SANTANA 23 Sep 2014 1442 ------- ------- ------- ------- -- Network results Ophthal mology 5 DEX PHILIPPE 09/[address] [place] [address])(S [facility] FAMRES Tm Blue) [address] [place] [address])(Sco tt [facility] Fam Res Tm Green) TELE CONSULT [id number] Notes Entered by: STEVIE SANTANA 05 Oct 2014 1119 ------- ------- ------- ------- -- Network results Ophthal mology 4 and 5 DEX PHILIPPE 10/[address] [place] [address])(S [facility] Fam Res Tm Green) [address] [place] [address])(Sco tt [facility] Fam Res Tm Green) TELE CONSULT [id number] Notes Entered by: STEVIE SANTANA 24 Jan 2015 0915 ------- ------- ------- ------- -- Network results Ophthal mology 5 DEX PHILIPPE 01/[address] [place] [address] David RIVERA [facility])(S cott OF Fam Res Tm Green) [address] [place] [address] David [facility])(Sco tt [facility] FAMRES Tm Blue) TELE CONSULT [id number] Notes Entered by: Rob JIMÉNEZ 24 Jan 2015 1445 ------- ------- ------- ------- -- SX - Testicu lar pain/sw jason/ Joahnna / MARGOT MEZA 01/[address] [place] [address] David [facility])(S cott OF FAMRES Tm Blue) [address] [place] [address] David [facility])(Sco tt OF FAMRES Tm Blue) OUTPATIENT [id number] Follow up er visit [phone] KRISTINE DEL TORO 01/25 Released w/o Limitations [address] [place] [address] [facility]S cott OF FAMRES Tm Blue) [address] [place] [address] [facility]Sco tt OF FAMRES Tm Blue) OUTPATIENT [id number] f/u in 10 days KRISTINE DEL TORO 02/02 Released w/o Limitations [address] [place] [address] [facility]S cott OF FAMRES Tm Blue) [address] [place] [address] David B [facility])(Sco tt OF Fam Res Tm Green) TELE CONSULT [id number] Notes Entered by: STEVIE SANTANA 28 Mar 2015 1003 ------- ------- ------- ------- -- Network Results - [facility] mology 5 DEX PHILIPPE 03/[address] [place] [address] David SCHAEFERB [facility])(S cott OF Fam Res Tm Green) [address] [place], [place] [address]B [facility])(Sco tt [facility] FAMRES Tm Blue) TELE CONSULT [id number] Notes Entered by: DONNY OROZCO 08 May 2016 1131 ------- ------- ------- ------- -- Network Results OPHTHAL MOLOGY 04/25/16 MARKY PHILIPPETYRONSONIYA Rivas 05/[address] [place] [address])(S [facility] Tm Blue) [address] [place] [address])(Sco tt [facility] Blue) OUTPATIENT [id number] 9 cough x 1 month AIMEE REED 07/14 Released w/o Limitations [address] [place] [address] David [facility])(S [facility] Tm Blue) [address] [place] [address])(Sco tt [facility] Fanchimp) TELE CONSULT [id number] Notes Entered by: DAVID HUSAIN 25 Dec 2018 0937 ------- ------- ------- ------- -- Network results Gastroe nterolo gy 019 EER AIMEE REED 12/25 Released to Self Care [address] [place] [address])(S [facility] Tm Blue) [address] [place] [address])(Sco tt [facility]anchimp) OUTPATIENT [id number] 3 6-month f/u AIMEE REED 02/11 Released w/o Limitations [address] [place] [address])([facility] Fanchimp) Procedures Combined list of: 1) Procedures from [...] OF FEMUR WITH INTERNAL FIXATION 07/30/18 95 [facility] TELE ASSESS & MGT SRV PROV QUAL NONPHYS HLTH CARE PRO TO EST PAT,PARENT,GUARD NOT ORIG REL ASSESS & MGT SRV PROV W/IN PREV 7 DAYS NOR LEAD ASSESS & MGT SRV/PX W/IN NXT 24 HR/SOON APT;5-10 MIN MED DIS 01/25/20 15 [facility] TELE ASSESS & MGT SRV PROV QUAL [...] Non-Physician Phone Call To Patient/Provider Brief (5-10min) [id number] 01/25/20 15 MARGOT MEZA DoD Non-Physician Phone Call To Patient/Provider Brief (5-10min) Non-Physician Phone Call To Patient/Provider Brief (5-10min) [id number] 08/19/19 15 MARGOT MEZA Tayla [facility] Non-Physician Phone Call To Patient/Provider Brief (5-10min) Non-Physician Phone Call To Patient/Provider Brief (5-10min) [id number] 03/15/20 14 MENDOZA KIRT M [facility] Immunization Administration One Vaccine Immunization Administration One Vaccine 60244 03/11/20 12 [facility] Influenza Split Virus Vacc Age 3+ Years IM Preservative Free 03/11/20 12 [facility] Immunization Administration Each Additional Vaccine 03/11/20 12 [facility] Tdap Vaccine Tdap Vaccine 64032 03/11/20 12 [facility] Non-Physician Phone Call To Patient/Provider Brief (5-10min) Non-Physician Phone Call To Patient/Provider Brief (5-10min) [id number] 10/19/19 11 JEANIE MERINO [facility] Excision Of Lesion Feet Benign .6 to 1cm Excision Of Lesion Feet Benign .6 to 1cm 62100 02/29/20 09 LYUDMILA HUNG [facility] Shaving Of Lesion Trunk 1.1 to 2cm Shaving Of Lesion Trunk 1.1 to 2cm 38151 01/08/20 06 MARINA OSHEA [facility] Social History Combined list of available smoking, [...] Plan No data available for this section 09/05/2024 Ambulatory Pharmacy Functional Status Combined list of recent functional and cognitive assessments recorded at Department of Defense and Veterans Affairs (VA).VA Functional Topping Measurement (FIM) Scale: 1 = Total Assistance (Subject = 0% +), 2 = Maximal Assistance (Subject = 25% +), 3 = Moderate Assistance (Subject = 50% +), 4 = Minimal Assistance (Subject = 75% +), 5 = Supervision, 6 = Modified Topping (Device), 7 = Complete Topping (Timely, Safely). Assessment Date/Time Source Assessment Type Assessment Skill Assessment Score Assessment Details No data available for this section
--- OUTSIDE RECORDS SUMMARY | 2024-09-05 10:32 | XMS_ITS | Continuity of Care Document ---
Author Organization [facility] Address [address] [place] [address] Phone Care Team Providers Care Crane Manager Name Role Phone Sanya Foote MD Unavailable Unavailable Allergies, Adverse Reactions, Alerts Substance Reaction Status Criticality No Known Allergies Active No Inform ation Medications Medication Instructions Dosage Effective Dates (start - stop) Status Comments irbesartan 150 mg-hydrochlorothiazi de 12.5 mg tablet take 1 tablet by oral route every day 1.00 tablet - Active Crestor 10 mg tablet take 1 tablet by oral route every day 10 MG - Active finasteride 5 mg tablet take 1 tablet by oral route every day 5 MG - Active Procedures Procedure Date OFFICE/OUTPATIENT VISIT, EST Medicare Addendum OFFICE/OUTPATIENT VISIT, EST PPPS, subseq visit OFFICE/OUTPATIENT VISIT, EST OFFICE/OUTPATIENT VISIT, EST OFFICE/OUTPATIENT VISIT, EST PPPS, initial visit OFFICE/OUTPATIENT VISIT, EST OFFICE/OUTPATIENT VISIT, EST OFFICE/OUTPATIENT VISIT, EST OFFICE/OUTPATIENT VISIT, NEW Advance Directives Directive Yes / No Effective Date File Name No Information Encounters Encounter Description Practice Location Reason(s) For Visit Diagnoses Date Provider Providers Copied on Encounter OFFICE/OUTPA TIENT VISIT, EST [facility], [address] [place] [address], [id number], [place] tel:[phone] [facility] physical (chief complaint) Essential (primary) hypertensionOphthal moplegic migraine, not intractableBPH w/o lower urinary tract symptomMixed hyperlipidemia Fe- 4- 5 Qamar Segundo. [address], [place], [place], [id number] , [place]. [phone] OFFICE/OUTPA TIENT VISIT, [facility], [address] [place], [id number], [place] [phone] [facility] cough1 (chief complaint) migraine1 (chief complaint) HTN (chief complaint) Ophthalmoplegic migraine, not intractableEssentia l (primary) hypertensionChronic cough 8 5 Qamar Segundo. [address], [address], [place], [place], [id number] , [place]. tel:[phone] OFFICE/OUTPA TIENT VISIT, [facility], [address] [place], [id number], [place] tel:[phone] [facility] physical (chief complaint) Encounter for general adult medical exam w abnormal findingsMixed hyperlipidemiaEssen tial (primary) hypertensionBPH w/o lower urinary tract symptom Jun-0 6 4 Qamar Segundo. [address], [address], [place], [place], [id number] , [place]. [phone] OFFICE/OUTPA TIENT VISIT, [facility], [address] [place], [id number], [place] tel:[phone] [facility] cough1 (chief complaint) elbow pain1 (chief complaint) Lateral epicondylitis, left elbowAcute bronchitis Jun- 0- 3 Qamar Segundo. [address], [address], [place], [place], [id number] , [place]. [phone] OFFICE/OUTPA TIENT VISIT, [facility], [address], [place], [place], [id number], [place] tel:[phone] [facility] HLKP (chief complaint) skin (chief complaint) HTN (chief complaint) BPH1 (chief complaint) weight gain1 (chief complaint) Abnormal weight gainBPH w/o lower urinary tract symptomEssential (primary) hypertensionMixed hyperlipidemiaActin ic keratosis 2 Qamar Fisher [address], [place], [place], [id number] , [place]. tel:[phone] OFFICE/OUTPA TIENT VISIT, [facility], [address] [place], [id number], [place] tel:[phone] [facility] physical (chief complaint) Essential (primary) hypertensionMixed hyperlipidemiaBPH w/o lower urinary tract symptomEncounter for general adult medical exam w abnormal findings 2 Qamar Fisher [address], [place], [place], [id number] , [place]. tel:[phone] OFFICE/OUTPA TIENT VISIT, [facility], [address] [place], [id number], [place] tel:[phone] [facility] HTN (chief complaint) HTN (chief complaint) HLP (chief complaint) UTI1 (chief complaint) HyperlipidemiaUrina ry tract infectionElevated prostate specific antigen [PSA]Essential (primary) hypertension 1 Qamar Fisher [address], [place], [place], [id number] , [place]. tel:[phone] OFFICE/OUTPA TIENT VISIT, [facility], [address] [place], [id number], [place] tel:[phone] [facility] PSA (chief complaint) HLP (chief complaint) UTI1 (chief complaint) HTN (chief complaint) Essential (primary) hypertensionHyperli pidemiaElevated prostate specific antigen [PSA]Urinary tract infectionVitamin D deficiency, unspecified 1 Qamar Fisher [address], [place], [place], [address] , [place]. tel:[phone] OFFICE/OUTPA TIENT VISIT, [facility], [address] [place], [address], [place] tel:[phone] [facility] HTN (chief complaint) edema1 (chief complaint) cataract1 (chief complaint) Essential (primary) hypertensionEdemaCa taract with neovascularization, right eye Jun-2 1 Qamar Segundo. [address], [place], [place], [id number] , [place]. tel:[phone] Family History Family Member Type Diagnosis Age At Onset Mother Problem of hip fx 72 (Cause Of ) Brother Problem Alive and well Father Problem of CAD (Cause Of ) 70 Payers Payer name Insurance type Covered constitution party ID Authoriza tion(s) [employer] [place] MAGANA [id number] [facility] CI [id number] Social History Type Description Quantity Date Captured Comments Alcohol Use Details No Caffeine Use Details Unknown Tobacco Use Status Current non-smoker Smoking Status Never smoker Sex Male Vital Signs Date / Time: Height Weight BMI Pulse Rate Blood Pressure Temperature Respiratory Rate Body Surface Area Head Circumference BMI percentile Pulse Ox Inhaled Ox 12:26 PM 71.00 in 242.00 lbs 33.7 5 kg/m eter (2) 72 /min 120/70 mm[Hg] 98.0 F 16 /min Chief Complaint And Reason For Visit From encounter dated '06/07/2024 12:14'. physical (chief complaint). Description: Pt needs annual physical Pt has HLP. Pt takes crestor. Pt denies any myalgia. Pt has HTn. Pt takes irbesartan/hctz and his bp is stable. He has BPH and he sees urology. He denies any urinary symptoms .Pt is on finasteride. Pt overall feels well. He no longerhas migraines. MRI of brain ok. Pt denies any complaints. Plan Of Treatment Date Type Action Status Referral Ordered: MRI BRAIN W/O & W/DYE ordered Referral Ordered: Otolaryngology (related to Actinic keratosis) ordered Referral Ordered: Referrals: Otolaryngology. Evaluate and treat ordered Referral Ordered: Urology (related to Elevated prostate specific antigen [PSA]) ordered Referral Ordered: Referrals: Urology. Evaluate and treat ordered Appointment Davdi Shaffer BOOKED History Of Present Illness Encounter Date Complaint History Of Prese nt Illness physical Pt needs annual physical Pt has HLP. Pt takes crestor. Pt denies any myalgia. Pt has HTn. Pt takes irbesartan/hctz and his bp is stable. He has BPH and he sees urology. He denies any urinary symptoms .Pt is on finasteride. Pt overall feels well. He no longer has migraines. MRI of brain ok. Pt denies any complaints. cough1 Pt c/o persisten t dry cough [...] and macular hole and he does see campus monitor .Pt was told by campus monitor that his symptoms are not due to [...] overall feels well. Pt denies any complaints. cough1 Pt c/o persisten t dry cough x 3 weeks. Pt denies any phlegm Pt denies any sob Pt denies any fever, sore throat. His tested positive for COVID 2.5 weeks ago. Pt denies any chest pain. Pt denies any headache or chest pain or GI symports elbow pain1 Pt c/o dull left elbow pain x 3 weeks ,pt denies any injury or swelling Pt denies radiation of pain down to left forearm or any numbness or tingling of left forearm Pt denies any redness or warmth. Pt only notices pain when he lift his left elbow to certain degree. HTN Pt has HTN, Pt t akes irbesartan and his bp is stable BPH1 Pt has BPH Pt se es urology and he is on proscar .Pt denies any slow stream, dribbling or any urinary difficulty or urgency HLKP Pt has HLP. Pt t akes crestor and his lipid profile is ok His TG is borderline high Pt denies any myalgia skin Pt has scaly and rough skin left ear lobe for one year. Pt nguyen any bleeding Pt notices recurrent rough and scaly skin pt denies any itching or pain. Pt denies any scabbing weight gain1 Pt has been gain ing weight .Pt is not very physically active. pt states that hs to gain weight during winter time physical Pt needs annual physical Pt has HLP. Pt takes crestor. Pt denies any myalgia. Pt has HTn. Pt takes irbesartan/hctz and his bp is stable. He has BPH and he sees urology. He denies any urinary symptoms .Pt is not on any BPH medication. Pt overall feels well. Pt denies any complaints. HTN Pt has high PSA Pt denies any urinary symptoms Pt sees urology and he just got prostate MRi done and he is waiting for results HTN Pt has HTN. Pt t akes irbesartan and his bp is ok. Pt denies any urinary symptoms HLP Pt has HLP Pt ta jennifer crestor .Pt denies any myalgia. His lipid profile is better UTI1 Pt had asymptoma tic UTI. Pt denies any urinary symptoms and his ua is clear now PSA Pt has high PSA. Pt notices mild urinary frequency for one year Pt denies any dysuria, urgency or difficulty with urination HLP Pt has HLP Pt is not on any diet UTI Pt has UTI witho ut any symptoms Pt has urinary frequency but for over one year ,Pt denies any dysuria, urgency. HTN Pt has HTN. Pt t akes irbesartan/hctz and bp ok Pt denies any chest pain or headache Pt denies any cough cataract Pt needs right c ataract surgery soon and he needs clearance. He will undergo monitored anesthesia with mild sedation only. HTN Pt has history o f HTN [...] Pt denies any chest pain or sob Instructions Date Instruction Additional Infor mation No Information Assessments Type Assessment Date assessment Essential (primary) hypertension assessment Ophthalmoplegic migraine, not in tractable assessment BPH w/o lower urinary tract symp jd assessment Mixed hyperlipidemia Mental Status Date Cognitive Assessment Orientation - [place] ed to time, place, person, situation.
--- OUTSIDE RECORDS SUMMARY | 2024-09-05 11:03 | XMS_ITS | Continuity of Care Document ---
Author Name [facility] Organization [facility] Care Team Providers Care Clinical Counselor Name Role Phone [facility] Unavailable Unavailable Problems [...] ORAL, EXELAN PHARMACE, 90 ea. BOTTLE Active [id number] 4 2023 90 Pharmac y Data Transac tion Service Facilit y IRBESARTAN- HYDROCHLORO THIAZIDE (IRBESARTAN /HYDROCHLOR OTHIAZIDE), 150-12.5MG, TABLET, ORAL, [facility], 90 ea. BOTTLE Active [id number] 4 2023 90 Pharmac y Data Transac tion Service Facilit y IRBESARTAN- HYDROCHLORO THIAZIDE (IRBESARTAN /HYDROCHLOR OTHIAZIDE), 150-12.5MG, TABLET, ORAL, [facility], 90 ea. BOTTLE Active [id number] 4 2023 90 Pharmac y Data Transac tion Service Facilit y LATANOPROST (LATANOPROS T), 0.005%, DROPS, OPHTHALMIC, [employer] 2.5 ml DROP BTL Active [id number] 07/22/19 2 4 2023 5 Pharmac y Data Transac tion Service Facilit y LATANOPROST (LATANOPROS T), 0.005%, DROPS, OPHTHALMIC, [employer] 2.5 ml DROP BTL Active [id number] 09/22/19 2 4 2023 5 Pharmac y Data Transac tion Service Facilit y Allergies, Adverse Reactions, Alerts Combined list of allergies from Department of Defense and Veterans Affairs facilities. It does not include entries that were removed or entered in error. Substance Category Reaction Severity Reaction type Status Date Reported Comments Source NO OUTPUT FOR [facility] 209441 Drug allergy (disorder) active 12/12/2005 [facility] David RIVERA ([facility]) Immunizations Combined list of available immunizations from the Department of Defense and Veterans Affairs facilities. 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 Status Comments Source COVID Vaccine Pfizer 2020 208 PFIZER complet ed COVID Vaccine Pfizer 01/22/21 Given Ambulat ory Pharmac y COVID-19, mRNA, LNP-S, PF, 30 mcg/0.3 mL dose 2020 TEDDY DAXKO [place] (PFR) Not Given COVID-19, mRNA, LNP-S, PF, 30 mcg/0.3 mL dose DoD zoster vaccine, inactivated 2020 [facility] 187 Gl[employer]SmithK[employer] ne complet ed zoster vaccine, inactivat ed 01/10/21 Given Ambulat ory Pharmac y zoster vaccine, inactivated 2020 zzLef t Arm [facility] 187 GlaxoSmithKli ne complet ed zoster vaccine, inactivat ed 01/10/21 Given Ambulat ory Pharmac y zoster vaccine recombinant 1 2020 Unknown, Provider [facility] 187 [facility] zoster vaccine recombina nt DoD zoster vaccine, inactivated 2020 [id number] 187 [facility] complet ed zoster vaccine, inactivat ed 09/21/20 Given Ambulat ory Pharmac y pneumococcal polysaccharid e, 23 valent 2020 [id number] [employer] complet ed pneumococ sabrina polysacch aride, 23 valent 09/21/20 Given Ambulat ory Pharmac y zoster vaccine, inactivated 2020 zzLef t Arm [id number] 187 [facility] complet ed zoster vaccine, inactivat ed 09/21/20 Given Ambulat ory Pharmac y pneumococcal polysaccharid e, 23 valent 2020 zzLef t Arm [id number] 33 [employer] complet ed pneumococ sabrina polysacch aride, 23 valent 09/21/20 Given Ambulat ory Pharmac y pneumococcal polysaccharid e vaccine, 23 valent 1 2020 Unknown, Provider [id number] 33 Merck (MSD) complet ed pneumococ sabrina polysacch aride vaccine, 23 valent DoD zoster vaccine recombinant 1 2020 Unknown, Provider [id number] 187 [facility] ([facility]) complet ed zoster vaccine recombina nt DoD zoster vaccine live 2014 [id number] 121 [employer] complet ed zoster vaccine live 12/15/14 Given Ambulat ory Pharmac y zoster vaccine live 2014 zzLef t Arm [id number] 121 [employer] complet ed zoster vaccine live 12/15/14 Given Ambulat ory Pharmac y zoster vaccine, live 1 2014 Unknown, Provider [id number] 121 Merck (MSD) complet ed zoster vaccine, live DoD influenza, seasonal, injectable-pf 2011 [id number] 140 sanofi pasteur complet ed influenza , seasonal, injectabl e-pf 03/11/12 Given Ambulat ory Pharmac y tetanus, diphtheria, acellular pertu is 2011 [id number] [facility] tetanus, diphtheri a, acellular pertussis 03/11/12 Given Ambulat ory Pharmac y influenza, seasonal, injectable-pf 2011 zzLef t Arm [id number] 140 sanofi pasteur complet ed influenza , seasonal, injectabl e-pf 03/11/12 Given Ambulat ory Pharmac y tetanus, diphtheria, acellular pertu is 2011 zzRig Arm [id number] 115 [facility] complet ed tetanus, diphtheri a, acellular pertussis 03/11/12 Given Ambulat ory Pharmac y tetanus toxoid, reduced diphtheria toxoid, and acellular pertu is vaccine, adsorbed 1 2011 Unknown, Provider [id number] 115 [facility] ([facility]) complet ed tetanus toxoid, reduced diphtheri a toxoid, and acellular pertussis vaccine, adsorbed DoD Influenza, seasonal, injectable, preservative free 1 2011 Unknown, Provider [id number] 140 Sanofi Pasteur (PMC) complet ed Influenza , seasonal, injectabl e, preservat shantal free DoD tetanus-dipht h toxoids (Td) adult/adol 2003 [id number] 09 sanofi pasteur complet ed tetanus-d iphth toxoids (Td) adult/ado l 01/24/04 Given Ambulat ory Pharmac y tetanus-dipht h toxoids (Td) adult/adol 2003 [facility] [id number] 09 sanofi pasteur complet ed tetanus-d iphth toxoids (Td) adult/ado l 01/24/04 Given Ambulat ory Pharmac y tetanus and diphtheria toxoids, adsorbed, preservative free, for adult use (2 Lf of tetanus toxoid and 2 Lf of diphtheria toxoid) 1 2003 Unknown, Provider [id number] 09 Sanofi Pasteur (PMC) complet ed tetanus and diphtheri a toxoids, adsorbed, preservat shantal free, for adult use (2 Lf of tetanus toxoid and 2 Lf of diphtheri a toxoid) [facility] tuberculin purified protein derivative 2001 [id number] 96 sanofi pasteur complet ed tuberculi n [...] adult dosage DoD tuberculin purified protein derivative [id number] 96 [place] [employer] complet ed tuberculi n purified protein derivativ e 02/15/98 Given Ambulat ory Pharmac y tuberculin purified protein derivative [id number] 96 [place] [employer] complet ed Patient Tolerance : Negative Ambulat ory Pharmac y tuberculin skin test; purified protein derivative solution, intradermal 1 1997 Unknown, Provider [id number] 96 [place] (PD) complet ed tuberculi n [...] ADM Date DC Date Status Disposition Source [address] [place] [address] David RIVERA [facility]Sco tt [facility] Res Tm Green) OUTPATIENT [id number] lump on the shoulde ARVIND Dasilva 11/26 Released w/o Limitations [address] [place] [address] David RIVERA [facility])(S [facility] Fam Res Tm Green) [address] [place] [address] David RIVERA [facility])([facility] helen Practice Procedure s) OUTPATIENT [id number] NON-MARLON PLASTIC NEVUS MARINA OSHEA 01/07 Released w/o Limitations [address] [place] [address] David RIVERA [facility])(F amily Practic e Procedu res) [address] [place] [address] David RIVERA [facility] OUTPATIENT [id number] poss fungus on toes - [phone] JERMAINE CASTILLO 01/24 Released w/o Limitations [address] [place] [address] David RIVERA [facility])(S [facility] FAMRES Tm Blue) [address] [place] [address] David RIVERA [facility])(Sco tt [facility] FAMRES Tm Blue) OUTPATIENT [id number] growth on lt foot... [id number] WILLA ARROYO 02/01 Released w/o Limitations [address] [place] [address] David RIVERA [facility])(S cott [facility] FAMRES Tm Blue) [address] [place] [address] David SCHAEFERB ([facility])(Sco tt [facility] Fam Res Tm Green) OUTPATIENT [id number] MINOR PROCEDU RES-KELSEA GLION LEFT FOOT LYUDMILA HUNG Rambo 02/28 Released w/o Limitations [address] [place] [address] David SCHAEFERB ([facility])(S cott OF Fam Res Tm Green) [address] [place] [address] David SCHAEFERB ([facility])(Sco tt [facility] Fam Res Tm Green) OUTPATIENT [id number] SUTURE REMOVAL JEANIE, SONJAGONZALEZ CASILLAS 03/06 Released w/o Limitations [address] [place] [address] David RIVERA ([facility])(S cott [facility] Fam Res Tm Green) [address] [place] [address] David SCHAEFERB ([facility])(Sco tt [facility] FAMRES Tm Blue) OUTPATIENT [id number] Cyst on left foot middle toe [phone] TIFFANY CAMARA 09/26 Released w/o Limitations [address] [place] [address] David RIVERA ([facility])(S cott [facility] FAMRES Tm Blue) [address] [place] [address] David RIVERA ([facility])(Sco tt [facility] FAMRES Tm Blue) TELE CONSULT [id number] Needs fup appt with Dr Armas - [phone] CAD [facility] PANKAJ ARMAS 10/17[facility] David RIVERA ([facility])(S cott [facility] FAMRES Tm Blue) [address] [place] [address] David RIVERA ([facility])(Sco tt [facility] FAMRES Tm Blue) OUTPATIENT [id number] f/u ROGER PALUMBO 11/13 Released w/o Limitations [address] [place] [address] David RIVERA ([facility])(S cott [facility] FAMRES Tm Blue) [address] [place] [address] David RIVERA ([facility])(Sco tt [facility] FAMRES Tm Blue) OUTPATIENT [id number] f/u for medicat ions [phone] PANKAJ ARMAS 01/01 Released w/o Limitations [address] [place] [address] David RIVERA ([facility])(S cott [facility] FAMRES Tm Blue) [address] [place] [address] David RIVERA ([facility])(Sco tt [facility] FAMRES Tm Blue) OUTPATIENT [id number] f/u high blood pressur e [id number] VALENTE ARANA 06/30 Released w/o Limitations [address] [place] [address] David RIVERA ([facility])(S cott [facility] FAMRES Tm Blue) [address] [place] [address] David OLIVEJimy [facility])(Sco tt [facility] FAMRES Tm Blue) OUTPATIENT [id number] blood pressur e [phone] PANKAJ ARMAS 03/11 Released w/o Limitations [address] [place] [address] Group David OLIVEB ([facility])(S cott OF FAMRES Tm Blue) [address] [place] [address] David SCHAEFERB [facility])(Sco tt [facility] Fam Res Tm Green) OUTPATIENT [id number] 2nd floor David RIVERA/VALENTE Starr 05/18 Released w/o Limitations [address] [place] [address] David OLIVEJimy [facility])(S cott [facility] Fam Res Tm Green) [address] [place] [address] David OLIVEJimy [facility])(Sco tt [facility] FAMRES Tm Blue) TELE CONSULT [id number] Notes Entered by: ZABRINA BRISCOE 19 May 2012 1511 ------- ------- ------- ------- -- Call back C-scope 2012- KEKE Doty 05/19 Released to Self Care [address] [place] [address] David RIVERA [facility])(S cott [facility] FAMRES Tm Blue) [address] [place] [address] David OLIVEJimy [facility])(Sco tt [facility] Fam Res Tm Green) TELE CONSULT [id number] Notes Entered by: VALENTE PAYNE 27 May 2012 1157 ------- ------- ------- ------- -- Biopsy Results VALENTE PAYNE 05/[address] [place] [address] Group David RIVERA [facility])(S cott [facility] Fam Res Tm Green) [address] [place] [address] David OLIVEJimy [facility])(Sco tt [facility] FAMRES Tm Blue) OUTPATIENT [id number] fu whole in left eye [phone] ROSEMARIE UNDERWOOD 02/16 Released w/o Limitations [address] [place] [address] David OLIVEJiym ([facility])(S cott [facility] FAMRES Tm Blue) [address] [place] [address] David OLIVEB ([facility])(Sco tt [facility] FAMRES Tm Blue) TELE CONSULT [id number] Notes Entered by: BEA DONALDSON 15 Mar 2014 1305 ------- ------- ------- ------- -- Curt kimble Renewal request ed by KIRT ALVAREZ 03/15 Referred for Appointment [address] [place] [address] Group David [facility])(S cott [facility] FAMRES Tm Blue) [address] [place] [address])(Sco tt [facility] Tm Blue) TELE CONSULT [id number] Notes Entered by: TY FRAUSTO 18 Aug 2014 1427 ------- ------- ------- ------- -- Kim bartholmoew /johanna /[phone] MARGOT MEZA 08/[address] [place] [address])(S [facility] FAMRES Tm Blue) [address] [place] [address])([facility] TELE CONSULT [id number] Notes Entered by: STEVIE SANTANA 23 Sep 2014 1442 ------- ------- ------- ------- -- Network results Ophthal mology 5 DEX PHILPIPE 09/[address] [place] [address])(S [facility] FAMRES Tm Blue) [address] [place] [address])(Sco tt [facility] Fam Res Tm Green) TELE CONSULT [id number] Notes Entered by: STEVIE SANTANA 05 Oct 2014 1119 ------- ------- ------- ------- -- Network results Ophthal mology 4 and 5 DEX PHILIPPE 10/[address] [place] [address])(S [facility] Fam Res Tm Green) [address] [place] [address])(Sco tt [facility] Fam Res Tm Green) TELE CONSULT [id number] Notes Entered by: STEVIE SANTANA 24 Jan 2015 0915 ------- ------- ------- ------- -- Network results Ophthal mology 5 DEX PHILIPPE 01/[address] [place] [address] David RIVERA [facility])(S cott OF Fam Res Tm Green) [address] [place] [address] David [facility])(Sco tt [facility] FAMRES Tm Blue) TELE CONSULT [id number] Notes Entered by: Rob JIMÉNEZ 24 Jan 2015 1445 ------- ------- ------- ------- -- SX - Testicu lar pain/sw jason/ Johanna / MARGOT MEZA 01/[address] [place] [address] David [facility])(S cott OF FAMRES Tm Blue) [address] [place] [address] David [facility])(Sco tt OF FAMRES Tm Blue) OUTPATIENT [id number] Follow up er visit [id number] KRISTINE DEL TORO 01/25 Released w/o Limitations [address] [place] [address] [facility] cott OF FAMRES Tm Blue) [address] [place] [address] [facility]Sco tt OF FAMRES Tm Blue) OUTPATIENT [id number] f/u in 10 days KRISTINE DEL TORO 02/02 Released w/o Limitations [address] [place] [address] [facility]S cott OF FAMRES Tm Blue) [address] [place] [address] David B [facility])(Sco tt OF Fam Res Tm Green) TELE CONSULT [id number] Notes Entered by: STEVIE SANTANA 28 Mar 2015 1003 ------- ------- ------- ------- -- Network Results - [facility] mology 5 DEX PHILIPPE 03/[address] [place] [address] David SCHAEFERB [facility]S cott OF Fam Res Tm Green) [address] [place], [place] [address]B [facility])(Sco tt [facility] FAMRES Tm Blue) TELE CONSULT [id number] Notes Entered by: DONNY OROZCO 08 May 2016 1131 ------- ------- ------- ------- -- Network Results OPHTHAL MOLOGY 04/25/16 MARKY PHILIPPETYRONSONIYA Rivas 05/[address] [place] [address])(S [facility] Tm Blue) [address] [place] [address])(Sco tt [facility] Blue) OUTPATIENT [id number] 9 cough x 1 month AIMEE REED 07/14 Released w/o Limitations [address] [place] [address] David [facility])(S [facility] Tm Blue) [address] [place] [address])(Sco tt [facility] [employer]) TELE CONSULT [id number] Notes Entered by: DAVID HUSAIN 25 Dec 2018 0937 ------- ------- ------- ------- -- Network results Gastroe nterolo gy 019 EER AIMEE REED 12/25 Released to Self Care [address] [place] [address])(S [facility] Tm Blue) [address] [place] [address])(Sco tt [facility] [employer]) OUTPATIENT [id number] 3 6-month f/u AIMEE REED 02/11 Released w/o Limitations [address] [place] [address])([facility] [employer]) Procedures Combined list of: 1) Procedures from [...] OF FEMUR WITH INTERNAL FIXATION 07/30/18 95 [facility] TELE ASSESS & MGT SRV PROV QUAL NONPHYS HLTH CARE PRO TO EST PAT,PARENT,GUARD NOT ORIG REL ASSESS & MGT SRV PROV W/IN PREV 7 DAYS NOR LEAD ASSESS & MGT SRV/PX W/IN NXT 24 HR/SOON APT;5-10 MIN MED DIS 01/25/20 15 [facility] TELE ASSESS & MGT SRV PROV QUAL [...] Non-Physician Phone Call To Patient/Provider Brief (5-10min) [id number] 01/25/20 15 MARGOT MEZA DoD Non-Physician Phone Call To Patient/Provider Brief (5-10min) Non-Physician Phone Call To Patient/Provider Brief (5-10min) [id number] 08/19/19 15 MARGOT MEZA Tayla [facility] Non-Physician Phone Call To Patient/Provider Brief (5-10min) Non-Physician Phone Call To Patient/Provider Brief (5-10min) [id number] 03/15/20 14 MENDOZA KIRT M [facility] Immunization Administration One Vaccine Immunization Administration One Vaccine 20266 03/11/20 [facility] Influenza Split Virus Vacc Age 3+ Years IM Preservative Free 03/11/20 12 [facility] Immunization Administration Each Additional Vaccine 03/11/20 12 [facility] Tdap Vaccine Tdap Vaccine 29611 03/11/20 12 [facility] Non-Physician Phone Call To Patient/Provider Brief (5-10min) Non-Physician Phone Call To Patient/Provider Brief (5-10min) [id number] 10/19/19 11 JEANIE MERINO [facility] Excision Of Lesion Feet Benign .6 to 1cm Excision Of Lesion Feet Benign .6 to 1cm 25235 02/29/20 09 LYUDMILA HUNG [facility] Shaving Of Lesion Trunk 1.1 to 2cm Shaving Of Lesion Trunk 1.1 to 2cm 10150 01/08/20 06 MARINA OSHEA [facility] Social History Combined list of available smoking, [...] of Defense and Veterans Affairs (VA).VA Functional [place] Measurement (FIM) Scale: 1 = Total Assistance (Subject = 0% +), 2 = Maximal Assistance (Subject = 25% +), 3 = Moderate Assistance (Subject = 50% +), 4 = Minimal Assistance (Subject = 75% +), 5 = Supervision, 6 = Modified [place] (Device), 7 = Complete [place] (Timely, Safely). Assessment Date/Time Source Assessment Type Assessment Skill Assessment Score Assessment Details No data available for this section
--- OUTSIDE RECORDS SUMMARY | 2024-09-05 11:03 | XMS_ITS | Continuity of Care Document ---
Author Organization [facility] Address [address] [facility] [place] [address] Phone Care Team Providers Care Streetcar Starter Name Role Phone Sanya Foote MD Unavailable Unavailable Allergies, Adverse Reactions, Alerts Substance Reaction Status Criticality No Known Allergies Active No Inform ation Medications Medication Instructions Dosage Effective Dates (start - stop) Status Comments Crestor 10 mg tablet take 1 tablet [...] Copied on Encounter OFFICE/OUTPA TIENT VISIT, EST [facility], [address], [place], [id number], [place] tel:[phone] [facility] physical (chief complaint) Essential (primary) hypertensionOphthal moplegic migraine, not intractableBPH w/o lower urinary tract symptomMixed hyperlipidemia Fe- 4- 5 Qamar Segundo. [address], [address], [place], [place], [address] , [place]. [phone] OFFICE/OUTPA TIENT VISIT, [facility], [address] [place], [place], [id number], [place] [phone] [facility] cough1 (chief complaint) migraine1 (chief complaint) HTN (chief complaint) Ophthalmoplegic migraine, not intractableEssentia l (primary) hypertensionChronic cough 8 5 Qamar Segundo. [address], [address], [place], [place], [id number] , [place]. tel:[phone] OFFICE/OUTPA TIENT VISIT, [facility], [address] [place], [place], [id number], [place] tel:[phone] [facility] physical (chief complaint) Encounter for general adult medical exam w abnormal findingsMixed hyperlipidemiaEssen tial (primary) hypertensionBPH w/o lower urinary tract symptom Jun-0 6 4 Qamar Segundo. [address], [address], [place], [place], [address] , [place]. [phone] OFFICE/OUTPA TIENT VISIT, [facility], [address] [place], [place], [address], [place] tel:[phone] [facility] cough1 (chief complaint) elbow pain1 (chief complaint) Lateral epicondylitis, left elbowAcute bronchitis Jun- 0- 3 Qamar Segundo. [address], [address], [place], [place], [address] , [place]. [phone] OFFICE/OUTPA TIENT VISIT, [facility], [address], [place], [place], [address], [place] tel:[phone] [facility] HLKP (chief complaint) skin (chief complaint) HTN (chief complaint) BPH1 (chief complaint) weight gain1 (chief complaint) Abnormal weight gainBPH w/o lower urinary tract symptomEssential (primary) hypertensionMixed hyperlipidemiaActin ic keratosis 2 Qamar Fisher [address], [place], [place], [address] , [place]. tel:[phone] OFFICE/OUTPA TIENT VISIT, [facility], [address] [place], [address], [place] tel:[phone] [facility] physical (chief complaint) Essential (primary) hypertensionMixed hyperlipidemiaBPH w/o lower urinary tract symptomEncounter for general adult medical exam w abnormal findings 2 Qamar Fisher [address], [place], [place], [address] , [place]. tel:[phone] OFFICE/OUTPA TIENT VISIT, [facility], [address] [place], [address], [place] tel:[phone] [facility] HTN (chief complaint) HTN (chief complaint) HLP (chief complaint) UTI1 (chief complaint) HyperlipidemiaUrina ry tract infectionElevated prostate specific antigen [PSA]Essential (primary) hypertension 1 Qamar Fisher [address], [place], [place], [address] , [place]. tel:[phone] OFFICE/OUTPA TIENT VISIT, [facility], [address] [place], [address], [place] tel:[phone] [facility] PSA (chief complaint) HLP (chief complaint) UTI1 (chief complaint) HTN (chief complaint) Essential (primary) hypertensionHyperli pidemiaElevated prostate specific antigen [PSA]Urinary tract infectionVitamin D deficiency, unspecified 1 Qamar Fisher [address], [place], [place], [address] , [place]. tel:[phone] OFFICE/OUTPA TIENT VISIT, [facility], [address] [place], [address], [place] tel:[phone] [facility] HTN (chief complaint) edema1 (chief complaint) cataract1 (chief complaint) Essential (primary) hypertensionEdemaCa taract with neovascularization, right eye Jun-2 1 Qamar Segundo. [address], [place], [place], [address] , [place]. tel:[phone] Family History Family Member Type Diagnosis Age At Onset Mother Problem of hip fx 72 (Cause Of ) Brother Problem Alive and well Father Problem of CAD (Cause Of ) 70 Payers Payer name Insurance type Covered alliance party ID Authoriza tion(s) [employer] [place] MAGANA [id number] [facility] CI [id number] Social History Type Description Quantity Date Captured [...] and treat ordered Appointment David Shaffer BOOKED History Of Present [...] and macular hole and he does see process artist .Pt was told by process artist that his symptoms are not due to [...] Mental Status Date Cognitive Assessment Orientation - [place] ed to time, place, person, situation.
--- NOTE | 2024-09-05 11:19 | ECG_ITS ---
Test Date: 2024-09-05 11:24:52 Measurements Intervals [place] Rate: 63 P: 29 W[place]: 212 QRS: -39 QRSD: 97 T: 7 QT: 389 QTc: 399 Interpretive Statements SINUS RHYTHM WITH FIRST DEGREE AV BLOCK LOW QRS VOLTAGE IN PRECORDIAL LEADS [QRS DEFLECTION < 1.0 mV IN CHEST LEADS] No previous ECG available for comparison Electronically Signed On 09-05-2024 11:47:47 CDT by Claus Hooper M.D.
--- OUTSIDE RECORDS SUMMARY | 2024-09-05 11:37 | XMS_ITS | Continuity of Care Document ---
Author Name [facility] Organization [facility] Care Team Providers Care Hand Tool Filer Name Role Phone [facility] Unavailable Unavailable Problems [...] ORAL, EXELAN PHARMACE, 90 ea. BOTTLE Active [id number] 4 2023 90 Pharmac y Data Transac tion Service Facilit y IRBESARTAN- HYDROCHLORO THIAZIDE (IRBESARTAN /HYDROCHLOR OTHIAZIDE), 150-12.5MG, TABLET, ORAL, [facility] [facility], 90 ea. BOTTLE Active [id number] 4 2023 90 Pharmac y Data Transac tion Service Facilit y IRBESARTAN- HYDROCHLORO THIAZIDE (IRBESARTAN /HYDROCHLOR OTHIAZIDE), 150-12.5MG, TABLET, ORAL, [facility], 90 ea. BOTTLE Active [id number] 4 2023 90 Pharmac y Data Transac tion Service Facilit y LATANOPROST (LATANOPROS T), 0.005%, DROPS, OPHTHALMIC, [employer] 2.5 ml DROP BTL Active [id number] 07/22/19 2 4 2023 5 Pharmac y Data Transac tion Service Facilit y LATANOPROST (LATANOPROS T), 0.005%, DROPS, OPHTHALMIC, [employer] 2.5 ml DROP BTL Active [id number] 09/22/19 2 4 2023 5 Pharmac y Data Transac tion Service Facilit y Allergies, Adverse Reactions, Alerts Combined list of allergies from Department of Defense and Veterans Affairs facilities. It does not include entries that were removed or entered in error. Substance Category Reaction Severity Reaction type Status Date Reported Comments Source NO OUTPUT FOR [facility] [id number] Drug allergy (disorder) active 12/12/2005 [facility] David RIVERA ([facility]) Immunizations Combined list of available immunizations from the Department of Defense and Veterans Affairs facilities. Immunization Series Date Given Administered By Site Reaction Lot Number CVX Code Drug Car Clerk Pullman Status Comments Source COVID Vaccine Pfizer 2020 208 PFIZER complet ed COVID Vaccine Pfizer 01/22/21 Given Ambulat ory Pharmac y COVID-19, mRNA, LNP-S, PF, 30 mcg/0.3 mL dose 2020 TEDDY [employer] [place] (PFR) Not Given COVID-19, mRNA, LNP-S, PF, 30 mcg/0.3 mL dose DoD zoster vaccine, inactivated 2020 [facility] 187 GlaxoSmithKli ne complet ed zoster vaccine, inactivat ed 01/10/21 Given Ambulat ory Pharmac y zoster vaccine, inactivated 2020 zzLef t Arm [facility] 187 GlaxoSmithKli ne complet ed zoster vaccine, inactivat ed 01/10/21 Given Ambulat ory Pharmac y zoster vaccine recombinant 1 2020 Unknown, Provider [facility] 187 [facility] zoster vaccine recombina nt DoD zoster vaccine, inactivated 2020 [id number] ed zoster vaccine, inactivat ed 09/21/20 Given Ambulat ory Pharmac y pneumococcal polysaccharid e, 23 valent 2020 [id number] [employer] Inc complet ed pneumococ sabrina polysacch aride, 23 valent 09/21/20 Given Ambulat ory Pharmac y zoster vaccine, inactivated 2020 zzLef t Arm [id number] 187 [facility] complet ed zoster vaccine, inactivat ed 09/21/20 Given Ambulat ory Pharmac y pneumococcal polysaccharid e, 23 valent 2020 zzLef t Arm [id number] 33 [employer] Inc complet ed pneumococ sabrina polysacch aride, 23 valent 09/21/20 Given Ambulat ory Pharmac y pneumococcal polysaccharid e vaccine, 23 valent 1 2020 Unknown, Provider [id number] 33 Merck (MSD) complet ed pneumococ sabrina polysacch aride vaccine, 23 valent DoD zoster vaccine recombinant 1 2020 Unknown, Provider [id number] 187 [facility] ([facility]) complet ed zoster vaccine recombina nt DoD zoster vaccine live 2014 [id number] 121 [employer] Inc complet ed zoster vaccine live 12/15/14 Given Ambulat ory Pharmac y zoster vaccine live 2014 zzLef t Arm [id number] 121 [employer] Inc complet ed zoster vaccine live 12/15/14 Given Ambulat ory Pharmac y zoster vaccine, live 1 2014 Unknown, Provider [id number] 121 Merck (MSD) complet ed zoster vaccine, live DoD influenza, seasonal, injectable-pf 2011 [id number] 140 sanofi pasteur complet ed influenza , seasonal, injectabl e-pf 03/11/12 Given Ambulat ory Pharmac y tetanus, diphtheria, acellular pertu is 2011 [id number] 115 [facility] complet ed tetanus, diphtheri a, acellular pertussis 03/11/12 Given Ambulat ory Pharmac y influenza, seasonal, injectable-pf 2011 zzLef t Arm [id number] 140 sanofi pasteur complet ed influenza , seasonal, injectabl e-pf 03/11/12 Given Ambulat ory Pharmac y tetanus, diphtheria, acellular pertu is 2011 zzRig Arm [id number] 115 [employer] complet ed tetanus, diphtheri a, acellular pertussis 03/11/12 Given Ambulat ory Pharmac y tetanus toxoid, reduced diphtheria toxoid, and acellular pertu is vaccine, adsorbed 1 2011 Unknown, Provider [id number] 115 [facility] (SKB) complet ed tetanus toxoid, reduced diphtheri a toxoid, and acellular pertussis vaccine, adsorbed DoD Influenza, seasonal, injectable, preservative free 1 2011 Unknown, Provider [id number] 140 Sanofi Pasteur (PMC) complet ed Influenza , seasonal, injectabl e, preservat shantal free DoD tetanus-dipht h toxoids (Td) adult/adol 2003 [id number] 09 sanofi pasteur complet ed tetanus-d iphth toxoids (Td) adult/ado l 01/24/04 Given Ambulat ory Pharmac y tetanus-dipht h toxoids (Td) adult/adol [id number] 09 sanofi pasteur complet ed tetanus-d iphth toxoids (Td) adult/ado l 01/24/04 Given Ambulat ory Pharmac y tetanus and diphtheria toxoids, adsorbed, preservative free, for adult use (2 Lf of tetanus toxoid and 2 Lf of diphtheria toxoid) 1 2003 Unknown, Provider [id number] 09 Sanofi Pasteur (PMC) complet ed tetanus and diphtheri a toxoids, adsorbed, preservat shantal free, for adult use (2 Lf of tetanus toxoid and 2 Lf of diphtheri a toxoid) [facility] tuberculin purified protein derivative 2001 [id number] 96 sanofi pasteur complet ed tuberculi n [...] adult dosage DoD tuberculin purified protein derivative [id number] 96 [place] Adalberto complet ed tuberculi n purified protein derivativ e 02/15/98 Given Ambulat ory Pharmac y tuberculin purified protein derivative [id number] 96 [place] Adalberto complet ed Patient Tolerance : Negative Ambulat ory Pharmac y tuberculin skin test; purified protein derivative solution, intradermal 1 1997 Unknown, Provider [id number] 96 [place] (PD) complet ed tuberculi n [...] ADM Date DC Date Status Disposition Source [address] [place] [address] David RIVERA [facility])(Sco tt [facility] Res Tm Green) OUTPATIENT [id number] lump on the shoulde ARVIND Dasilva 11/26 Released w/o Limitations [address] [place] [address] David RIVERA [facility])(S [facility] Fam Res Tm Green) [address] [place] [address] David RIVERA [facility])([facility] helen Practice Procedure s) OUTPATIENT [id number] NON-MARLON PLASTIC NEVUS MARINA OSHEA 01/07 Released w/o Limitations [address] [place] [address] David RIVERA [facility])(F amily Practic e Procedu res) [address] [place] [address] David RIVERA [facility])([facility] OUTPATIENT [id number] poss fungus on toes - [phone] JERMAINE CASTILLO 01/24 Released w/o Limitations [address] [place] [address] David RIVERA [facility])(S [facility] FAMRES Tm Blue) [address] [place] [address] David RIVERA [facility])(Sco tt [facility] [place] FAMRES Tm Blue) OUTPATIENT [id number] growth on lt foot... [id number] WILLA ARROYO 02/01 Released w/o Limitations [address] [place] [address] David RIVERA [facility])(S cott [facility] FAMRES Tm Blue) [address] [place] [address] David SCHAEFERB ([facility])(Sco tt [facility] [place] Fam Res Tm Green) OUTPATIENT [id number] MINOR PROCEDU RES-KELSEA GLION LEFT FOOT LYUDMILA HUNG Rambo 02/28 Released w/o Limitations [address] [place] [address] David SCHAEFERB ([facility])(S cott OF Fam Res Tm Green) [address] [place] [address] David SCHAEFERB ([facility])(Sco tt [facility] [place] [place] Fam Res Tm Green) OUTPATIENT [id number] SUTURE REMOVAL JEANIE, SONJAGONZALEZ CASILLAS 03/06 Released w/o Limitations [address] [place] [address] David RIVERA ([facility])(S cott [facility] [place] Fam Res Tm Green) [address] [place] [address] David SCHAEFERB ([facility])(Sco tt [facility] [place] FAMRES Tm Blue) OUTPATIENT [id number] Cyst on left foot middle toe [phone] TIFFANY CAMARA 09/26 Released w/o Limitations [address] [place] [address] David RIVERA ([facility])(S cott [facility] [place] FAMRES Tm Blue) [address] [place] [address] David RIVERA ([facility])(Sco tt [facility] [place] [place] FAMRES Tm Blue) TELE CONSULT [id number] Needs fup appt with Dr Armas - [phone] CAD [facility] PANKAJ ARMAS 10/17[facility] David RIVERA ([facility])(S cott [facility] [place] FAMRES Tm Blue) [address] [place] [address] David RIVERA ([facility])(Sco tt [facility] [place] FAMRES Tm Blue) OUTPATIENT [id number] f/u ROGER PALUMBO 11/13 Released w/o Limitations [address] [place] [address] David RIVERA ([facility])(S cott [facility] [place] FAMRES Tm Blue) [address] [place] [address] David RIVERA ([facility])(Sco tt [facility] [place] FAMRES Tm Blue) OUTPATIENT [id number] f/u for medicat ions [phone] PANKAJ ARMAS 01/01 Released w/o Limitations [address] [place] [address] David RIVERA ([facility])(S cott [facility] [place] FAMRES Tm Blue) [address] [place] [address] David RIVERA ([facility])(Sco tt [facility] [place] FAMRES Tm Blue) OUTPATIENT [id number] f/u high blood pressur e [phone] VALENTE ARANA 06/30 Released w/o Limitations [address] [place] [address] David RIVERA ([facility])(S cott [facility] [place] FAMRES Tm Blue) [address] [place] [address] David OLIVEJimy [facility])(Sco tt [facility] [place] FAMRES Tm Blue) OUTPATIENT [id number] blood pressur e [phone] PANKAJ ARMAS 03/11 Released w/o Limitations [address] [place] [address] Group David OLIVEB ([facility])(S cott OF FAMRES Tm Blue) [address] [place] [address] David SCHAEFERB [facility])(Sco tt [facility] [place] [place] Fam Res Tm Green) OUTPATIENT [id number] 2nd floor David RIVERA/VALENTE Starr 05/18 Released w/o Limitations [address] [place] [address] David OLIVEJimy [facility])(S cott [facility] [place] [place] Fam Res Tm Green) [address] [place] [address] David OLIVEJimy [facility])(Sco tt [facility] [place] [place] FAMRES Tm Blue) TELE CONSULT [id number] Notes Entered by: ZABRINA BRISCOE 19 May 2012 1511 ------- ------- ------- ------- -- Call back C-scope 2012- KEKE Doty 05/19 Released to Self Care [address] [place] [address] David RIVERA [facility]S cott [facility] [place] [place] FAMRES Tm Blue) [address] [place] [address] David OLIVEJimy [facility])(Sco tt [facility] [place] [place] Fam Res Tm Green) TELE CONSULT [id number] Notes Entered by: VALENTE PAYNE 27 May 2012 1157 ------- ------- ------- ------- -- Biopsy Results VALENTE PAYNE 05/[address] [place] [address] Group David RIVERA [facility])(S cott [facility] [place] [place] Fam Res Tm Green) [address] [place] [address] David [facility]IVE[facility])(Sco tt [facility] [place] [place] FAMRES Tm Blue) OUTPATIENT [id number] fu whole in left eye [phone] ROSEMARIE UNDERWOOD 02/16 Released w/o Limitations [address] [place] [address] David OLIVEJimy ([facility])(S cott [facility] [place] [place] FAMRES Tm Blue) [address] [place] [address] David OLIVEB ([facility])(Sco tt [facility] [place] [place] FAMRES Tm Blue) TELE CONSULT [id number] Notes Entered by: BEA DONALDSON 15 Mar 2014 1305 ------- ------- ------- ------- -- Curt kimble Renewal request ed by KIRT ALVAREZ 03/15 Referred for Appointment [address] [place] [address] Group David [facility])(S cott [facility] [place] [place] FAMRES Tm Blue) [address] [place] [address])(Sco tt [facility] Tm Blue) TELE CONSULT [id number] Notes Entered by: TY FRAUSTO 18 Aug 2014 1427 ------- ------- ------- ------- -- Kim bartholomew /johanna /[phone] MARGOT MEZA 08/[address] [place] [address])(S [facility] FAMRES Tm Blue) [address] [place] [address])([facility]) TELE CONSULT [id number] Notes Entered by: STEVIE SANTANA 23 Sep 2014 1442 ------- ------- ------- ------- -- Network results Ophthal mology 5 DEX PHILIPPE 09/[address] [place] [address])(S [facility] FAMRES Tm Blue) [address] [place] [address])(Sco tt [facility] [place] [place] Fam Res Tm Green) TELE CONSULT [id number] Notes Entered by: STEVIE SANTANA 05 Oct 2014 1119 ------- ------- ------- ------- -- Network results Ophthal mology 4 and 5 DEX PHILIPPE 10/[address] [place] [address])(S [facility] Fam Res Tm Green) [address] [place] [address])(Sco tt [facility] [place] Fam Res Tm Green) TELE CONSULT [id number] Notes Entered by: STEVIE SANTANA 24 Jan 2015 0915 ------- ------- ------- ------- -- Network results Ophthal mology 5 DEX PHILIPPE 01/[address] [place] [address] David RIVERA [facility])(S cott OF Fam Res Tm Green) [address] [place] [address] David [facility])(Sco tt [facility] [place] [place] FAMRES Tm Blue) TELE CONSULT [id number] Notes Entered by: Rob JIMÉNEZ 24 Jan 2015 1445 ------- ------- ------- ------- -- SX - Testicu lar pain/sw jason/ Johanna / MARGOT MEZA 01/[address] [place] [address] David [facility])(S cott OF FAMRES Tm Blue) [address] [place] [address] David [facility])(Sco tt OF FAMRES Tm Blue) OUTPATIENT [id number] Follow up er visit [id number] KRISTINE DEL TORO 01/25 Released w/o Limitations [address] [place] [address] [facility]S cott OF FAMRES Tm Blue) [address] [place] [address] [facility]Sco tt OF FAMRES Tm Blue) OUTPATIENT [id number] f/u in 10 days KRISTINE DEL TORO 02/02 Released w/o Limitations [address] [place] [address] [facility]S cott OF FAMRES Tm Blue) [address] [place] [address] David B [facility])(Sco tt OF Fam Res Tm Green) TELE CONSULT [id number] Notes Entered by: STEVIE SANTANA 28 Mar 2015 1003 ------- ------- ------- ------- -- Network Results - [facility] mology 5 DEX PHILIPPE 03/[address] [place] [address] David SCHAEFERB [facility])(S cott OF Fam Res Tm Green) [address] [place], [place] [address]B [facility])(Sco tt [facility] [place] [place] FAMRES Tm Blue) TELE CONSULT [id number] Notes Entered by: DONNY OROZCO 08 May 2016 1131 ------- ------- ------- ------- -- Network Results OPHTHAL MOLOGY 04/25/16 MARKY WOODSONTYRON SPENCERSONIYA Rivas 05/[address] [place] [address])(S [facility] Tm Blue) [address] [place] [address])(Sco tt [facility] Blue) OUTPATIENT [id number] 9 cough x 1 month AIMEE REED 07/14 Released w/o Limitations [address] [place] [address] David [facility])(S [facility] Tm Blue) [address] [place] [address] David [facility])(Sco tt [facility] xkoto) TELE CONSULT [id number] Notes Entered by: DAVID HUSAIN 25 Dec 2018 0937 ------- ------- ------- ------- -- Network results Gastroe nterolo gy 019 EER AIMEE REED 12/25 Released to Self Care [address] [place] [address])(S [facility] Tm Blue) [address] [place] [address] David [facility])(Sco tt [facility] xkoto) OUTPATIENT [id number] 3 6-month f/u AIMEE REED 02/11 Released w/o Limitations [address] [place] [address])([facility]) Procedures Combined list of: 1) Procedures from Department of Veterans Affairs facilities going back up to thelast 18 months, not all VA non-surgical procedures are included; 2) All procedures from the Department of Defense facilities. Procedure Procedure Type Code Date Perfomer Comments Sour e CLOSED REDUCTION OF FRACTURE OF FEMUR WITH INTERNAL FIXATION 07/30/18 95 [facility] TELE ASSESS & MGT SRV PROV QUAL NONPHYS HLTH CARE PRO TO EST PAT,PARENT,GUARD NOT ORIG REL ASSESS & MGT SRV PROV W/IN PREV 7 DAYS NOR LEAD ASSESS & MGT SRV/PX W/IN NXT 24 HR/SOON APT;5-10 MIN MED DIS 01/25/20 15 [facility] TELE ASSESS & MGT SRV [...] WASHING, WHEN PERFORMED (SEPARATE PROCEDURE) 01/23/20 02 [facility] SIGMOIDOSCOPY, FLEXIBLE; DIAGNOSTIC, INCLUDING COLLECTION OF SPECIMEN(S) BY BRUSHING OR WASHING, WHEN PERFORMED (SEPARATE PROCEDURE) 01/06/20 02 [facility] Non-Physician Phone Call To Patient/Provider Brief (5-10min) Non-Physician Phone Call To Patient/Provider Brief (5-10min) [id number] 01/25/20 15 MARGOT MEZA [facility] Non-Physician Phone Call To Patient/Provider Brief (5-10min) Non-Physician Phone Call To Patient/Provider Brief (5-10min) 11412 08/19/19 15 MARGOT MEZA [facility] Non-Physician Phone Call To Patient/Provider Brief (5-10min) Non-Physician Phone Call To Patient/Provider Brief (5-10min) [id number] 03/15/20 14 AMANDA DONALDSONA Tayla [facility] Immunization Administration One Vaccine Immunization Administration One Vaccine 92485 03/11/20 12 [facility] MARINA [facility] Influenza Split Virus Vacc Age 3+ Years IM Preservative Free 03/11/20 12 [facility] Immunization Administration Each Additional Vaccine 03/11/20 12 [facility] Tdap Vaccine Tdap Vaccine [id number] 03/11/20 12 [facility] Non-Physician Phone Call To Patient/Provider Brief (5-10min) Non-Physician Phone Call To Patient/Provider Brief (5-10min) 11823 10/19/19 11 JEANIE MERINO [facility] Excision Of Lesion Feet Benign .6 to 1cm Excision Of Lesion Feet Benign .6 to 1cm [id number] 02/29/20 09 LYUDMILA HUNG [facility] Shaving Of Lesion Trunk 1.1 to 2cm Shaving Of Lesion Trunk 1.1 to 2cm [id number] 01/08/20 06 MARINA OSHEA [facility] No data available for this section Ambulato ry Pharmacy Social History Combined list of available smoking, [...] of Defense and Veterans Affairs (VA).VA Functional [place] Measurement (FIM) Scale: 1 = Total Assistance (Subject = 0% +), 2 = Maximal Assistance (Subject = 25% +), 3 = Moderate Assistance (Subject = 50% +), 4 = Minimal Assistance (Subject = 75% +), 5 = Supervision, 6 = Modified [place] (Device), 7 = Complete [place] (Timely, Safely). Assessment Date/Time Source Assessment Type Assessment Skill Assessment Score Assessment Details No data available for this section
--- OUTSIDE RECORDS SUMMARY | 2024-09-05 11:37 | XMS_ITS | Continuity of Care Document ---
Author Organization [facility] Address [address] [facility] [place] [address] Phone Care Team Providers Care Crozer Name Role Phone Sanya Foote MD Unavailable [...] Copied on Encounter OFFICE/OUTPA TIENT VISIT, EST [facility], [address], [place], [id number], [place] tel:[phone] [facility] physical (chief complaint) Essential (primary) hypertensionOphthal moplegic migraine, not intractableBPH w/o lower urinary tract symptomMixed hyperlipidemia Fe- 4- 5 Qamar Segundo. [address], [address], [place], [place], [address] , [place]. [phone] OFFICE/OUTPA TIENT VISIT, [facility], [address] [place], [address], [place] [phone] [facility] cough1 (chief complaint) migraine1 (chief complaint) HTN (chief complaint) Ophthalmoplegic migraine, not intractableEssentia l (primary) hypertensionChronic cough 8 5 Qamar Segundo. [address], [address], [place], [place], [address] , [place]. tel:[phone] OFFICE/OUTPA TIENT VISIT, [facility], [address] [place], [address], [place] tel:[phone] [facility] physical (chief complaint) Encounter for general adult medical exam w abnormal findingsMixed hyperlipidemiaEssen tial (primary) hypertensionBPH w/o lower urinary tract symptom Jun-0 6 4 Qamar Segundo. [address], [place], [place], [address] , [place]. [phone] OFFICE/OUTPA TIENT VISIT, [facility], [address], [address], [place] tel:[phone] [facility] cough1 (chief complaint) elbow pain1 (chief complaint) Lateral epicondylitis, left elbowAcute bronchitis Jun- 0- 3 Qamar Segundo. [address], [address], [place], [place], [address] , [place]. [phone] OFFICE/OUTPA TIENT VISIT, [facility], [address], [place], [place], [address], [place] tel:[phone] [facility] HLKP (chief complaint) skin (chief complaint) HTN (chief complaint) BPH1 (chief complaint) weight gain1 (chief complaint) Abnormal weight gainBPH w/o lower urinary tract symptomEssential (primary) hypertensionMixed hyperlipidemiaActin ic keratosis 2 Qamar Fisher [address], [place], [place], [address] , [place]. tel:[phone] OFFICE/OUTPA TIENT VISIT, [facility], [address] [place], [address], [place] tel:[phone] [facility] physical (chief complaint) Essential (primary) hypertensionMixed hyperlipidemiaBPH w/o lower urinary tract symptomEncounter for general adult medical exam w abnormal findings 2 Qamar Fisher [address], [place], [place], [address] , [place]. tel: [phone] OFFICE/OUTPA TIENT VISIT, [facility], [address] [place], [address], [place] tel:[phone] [facility] HTN (chief complaint) HTN (chief complaint) HLP (chief complaint) UTI1 (chief complaint) HyperlipidemiaUrina ry tract infectionElevated prostate specific antigen [PSA]Essential (primary) hypertension 1 Qamar Fisher [address], [place], [place], [address] , [place]. tel:[phone] OFFICE/OUTPA TIENT VISIT, [facility], [address] [place], [address], [place] tel:[phone] [facility] PSA (chief complaint) HLP (chief complaint) UTI1 (chief complaint) HTN (chief complaint) Essential (primary) hypertensionHyperli pidemiaElevated prostate specific antigen [PSA]Urinary tract infectionVitamin D deficiency, unspecified 1 Qamar Fisher [address], [place], [place], [address] , [place]. tel:[phone] OFFICE/OUTPA TIENT VISIT, [facility], [address] [place], [address], [place] tel:[phone] [facility] HTN (chief complaint) edema1 (chief complaint) cataract1 (chief complaint) Essential (primary) hypertensionEdemaCa taract with neovascularization, right eye Jun-2 1 Qamar Segundo. [address], [place], [place], [address] , [place]. tel:[phone] Family History Family Member Type Diagnosis Age At Onset Mother Problem of hip fx 72 (Cause Of ) Brother Problem Alive and well Father Problem of CAD (Cause Of ) 70 Payers Payer name Insurance type Covered libertarian ID Authoriza tion(s) [employer] [place] MAGANA [id number] [facility] CI [id number] Social History Type Description Quantity Date Captured [...] and macular hole and he does see cupola tender .Pt was told by cupola tender that his symptoms are not due to [...] left ear lobe for one year. Pt ngueyn any bleeding Pt notices recurrent rough and [...] Mental Status Date Cognitive Assessment Orientation - [place] ed to time, place, person, situation.
--- NOTE | 2024-09-05 11:50 | ED.MALEGU ---
HPI - Male Genitourinary General Chief complaint: Urogenital-Male Stated complaint: penis problems Time Seen by Provider: 09/05/24 10:54 Source: patient Mode of arrival: ambulatory Limitations: no limitations History of Present Illness HPI Narrative: 74 years old white male came to the ED by private car from home complaining of pvc fitting stuck around his penis, for pleasure,, 3-4 days ago. tried to crack the pipe without success.. History of hypertension, hyperlipidemia not on blood thinner Related Data Allergies Allergy/AdvReac Type Severity Reaction Status Date / Time No Known Allergies Allergy Unverified 12/10/18 13:51 Review of Systems Review of Systems: All systems reviewed & are unremarkable except as noted in HPI and below PMFSH Past Medical History Medical History BPH (benign prostatic hyperplasia) Hyperlipidemia Hypertension Exam Narrative: General appearance: Well-developed, well-nourished Skin: Normal color Head: Normocephalic, nontraumatic Eyes: Clear conjunctiva ENT: Oropharynx normal, ears normal, nose normal Neck: Supple, nontender Chest and respiratory: Airway patent, no respiratory distress, no accessory muscle use Heart: Regular rate/rhythm Abdomen: Soft, nontender, no organomegaly, quiet bowel sounds Genital exam showing a pipe at the base of the penis like a ring, skin macerated underneath, the distal part of the penis is edematous Neurologic: Alert and oriented ?3, SUCTION WORKER is normal as tested, no gross motor deficit Course Consultations Consultation #1: DR [place] ACCEPTED PATIENT ADMISSION TO THE OR Date: 09/05/24 Vital Signs Vital signs: Vital Signs Temperature 36.6 C 09/05/24 10:52 Pulse Rate 68 09/05/24 10:52 Respiratory Rate 18 09/05/24 10:52 Blood Pressure 158/95 H 09/05/24 10:52 Pulse Oximetry 100 09/05/24 10:52 Oxygen Delivery Room Air 09/05/24 10:52 Temperature 36.4 C 09/05/24 12:45 Pulse Rate 61 09/05/24 14:15 Respiratory Rate 16 09/05/24 14:15 Blood Pressure 141/71 H 09/05/24 14:15 Pulse Oximetry 96 09/05/24 13:11 Oxygen Delivery Room Air 09/05/24 14:15 Oxygen Flow Rate 8 09/05/24 13:00 Discharge Plan Discharge Clinical Impression: Penis injury Patient Disposition: Still a Patient Condition: Stable
--- NOTE | 2024-09-05 11:51 | PM.IMHP ---
H&P: HPI History of Present Illness Date/Time: 09/05/24 11:51 Chief Complaint: foreign body on penis Narrative: He placed the pipe fitting about 4 days ago. He has been able to void. He tried to get it back off, but he was not able to remove it. Review of Systems Review of Systems: All systems reviewed & are unremarkable except as noted in HPI and below PMFSH Past Medical History Medical History (Updated 09/05/24 @ 11:53 by Manuelito Swain MD) BPH (benign prostatic hyperplasia) Hyperlipidemia Hypertension Meds Home Medications and Allergies Allergies Allergy/AdvReac Type Severity Reaction Status Date / Time No Known Allergies Allergy Unverified 12/10/18 13:51 Vital Signs Vital Signs - 24 hr 09/05/24 10:52 09/05/24 11:41 Temperature 36.6 C 36.6 C Pulse Rate 68 68 Respiratory Rate 18 18 Blood Pressure 158/95 H 157/96 H Pulse Oximetry 100 98 Oxygen Delivery Room Air Exam Const: General: comfortable and no acute distress Eyes: EOM: EOMs intact bilaterally : Other: pipe fitting on the penis with glans and shaft swollen distal to the fitting Psych: Mental Status: mental status grossly normal Assessment and Plan Assessment and plan (1) Penis injury: Code(s): S39.94XA - Unspecified injury of external genitals, initial encounter Status: Acute Assessment and Plan: he has a pipe fittign that was placed around the penis Plan Surgery to remove the pipe fitting. We reviewed risks of bleeding and infection. We discussed having a cystoscopy to ensure the urethra is normal and not injured. We discussed the possibility of future stricture from the edema and trauma. He would like to proceed with removal of the pipe fitting.
--- NOTE | 2024-09-05 11:53 | P.PNAN_ITS ---
Anes - Initial Pre Proc Eval Procedure: Operation Date: 09/05/24 12:30 Proposed Procedures p Exc Lesion Cyst Condyloma Penis Scrotum Penile - Manuelito Swain MD Date/Time: 09/05/24 11:53 Surgeon: Manuelito Swain MD Pre Op Diagnosis: penis problems Patient Data Age: 74 Gender: M Height: 1.8 m Weight: 108.9 kg Last Vital Signs Temp 36.6 C 09/05/24 11:41 Pulse 68 09/05/24 11:41 Resp 18 09/05/24 11:41 BP 157/96 H 09/05/24 11:41 Pulse Ox 98 09/05/24 11:41 O2 Del Method Room Air 09/05/24 10:52 Allergies Allergy/AdvReac Type Severity Reaction Status Date / Time No Known Allergies Allergy Unverified 12/10/18 13:51 Patient hx anesthesia problems: none Family hx anesthesia problems: none Results Review: All pre-operative results and documents have been reviewed as part of the pre- operative evaluation. [facility] Past Medical History Medical History (Updated 09/05/24 @ 11:53 by Manuelito Swain MD) BPH (benign prostatic hyperplasia) Hyperlipidemia Hypertension Anes - Eval Final PreProcedure Day of Procedure 09/05/24 11:53 Patient weight: obese Heart: regular rate and rhythm Lungs: clear to auscultation Airway: Mallampati scale class III Neurological: alert and oriented Last oral intake: >/= 8 hours ASA classification: III Emergent: no Anesthetic plan: proceed Anesthesia type and monitoring: general LMA and standard monitoring Results Review: All pre-operative results and documents have been reviewed as part of the pre- operative evaluation. Informed Consent: The patient's anesthetic plan and its attendant risks and benefits were discussed with the patient/family/POA. Questions were solicited and answers provided to the satisfaction of the patient/family/POA.
--- NOTE | 2024-09-05 11:57 | WPDHPUPDATE1 ---
History and Physical Update Update Date/Time: 09/05/24 11:57 History and Physical has been reviewed, including an updated exam of the patient. There are NO changes in the patient's condition. Risks, benefits, and alternatives have been discussed and questions answered. Patient agrees to proceed with procedure.
[2024-09-05] MEDS: ceFAZolin 1 GM/NS 50 ML 1 GM/50 ML BAG IVPB (12:11)
[2024-09-05] MEDS: BACITRACIN OINTMENT 15 GM TUBE 1 APPLIC TOPICAL (12:27)
--- NOTE | 2024-09-05 12:34 | P.OP_ITS ---
Procedure Note - Detailed Date of Procedure 09/05/24 Pre-op Diagnosis penis problems Post-op Diagnosis Same Procedure Performed removal of penile foreign object and cystoscopy Surgeon Manuelito Swain MD Anesthesia General Indications pipe fitting on the shaft of the penis Findings minimal abrasion under the pipe fitting; no necrotic tissue; urethra normal Description of Procedure The patient was taken to the operating room in stable condition. He was placed under general anesthesia. The pipe fitting was carefully manipulated with rongeur and spreaders. I was able to weaken and remove the fitting. There was mi ld abrasion under the fitting. There was no necrotic tissue. The patient was prepped and draped in sterile fashion. The flexible cystoscope was introduced through the urethra into the bladder. No injuries were noted in the urethra. The bladder appeared normal. The cystocope was removed. Bacitracin ointment was applied to the abrasion areas. He tolerated the procedure well. Estimated Blood Loss 0 IV Fluids 500 Drains No Complications No immediate complications Condition Stable Disposition PACU
[2024-09-05] MEDS: LACTATED RINGERS 1,000 ML 30 ML IV CONT ×2 (12:35→13:37)
--- NOTE | 2024-09-05 12:43 | PM.CNPUL ---
History of Present Illness History of Present Illness Consult date: 09/05/24 Chief complaint: penis problems PMFSH Past Medical History Medical History BPH (benign prostatic hyperplasia) Hyperlipidemia Hypertension Meds Home Medications and Allergies Allergies Allergy/AdvReac Type Severity Reaction Status Date / Time No Known Allergies Allergy Unverified 12/10/18 13:51 Vital Signs Vital Signs - 24 hr 09/05/24 10:52 09/05/24 11:41 Temperature 36.6 C 36.6 C Pulse Rate 68 68 Respiratory Rate 18 18 Blood Pressure 158/95 H 157/96 H Pulse Oximetry 100 98 Oxygen Delivery Room Air
== END 2024-09-05 14:24 | disposition home or self-care (01) ==
LOC: ANHED 10:57 → ANHSURGERY 11:35
PROVIDERS: Emergency Provider Emergency Medicine; PCP Emergency Medicine; Visit Provider Urology
PROC: (CPT 54060; principal; 2024-09-05 12:30)
DX: S30.812A Abrasion of penis, initial encounter (principal); X58.XXXA Exposure to other specified factors, initial encounter; E78.5 Hyperlipidemia, unspecified; I10 Essential (primary) hypertension; N40.0 Benign prostatic hyperplasia without lower urinary tract symptoms; E66.9 Obesity, unspecified; Z68.33 Body mass index [BMI] 33.0-33.9, adult
CPT/HCPCS: 55899; 93005; 99285; A9270; J0690; J2003; J2704; J7030; J7120